=== PATIENT | male | born 1935 | race African-American/Black ===

== ENCOUNTER 2016-07-07 11:46 | Outpatient (CLI) | payer MEDICARE, OTHER | END 2016-07-07 11:47 | disposition home or self-care (01) | DX: E11.9 Type 2 diabetes mellitus without complications (principal); N18.3 Chronic kidney disease, stage 3 (moderate); B35.1 Tinea unguium; M54.5 Low back pain; I12.9 Hypertensive chronic kidney disease with stage 1 through stage 4 chronic kidney disease, or unspecified chronic kidney disease ==

== ENCOUNTER 2016-11-10 11:37 | Outpatient (CLI) | payer MEDICARE, OTHER ==
[2016-11-10 19:13] LABS: CALCIUM 9.7 mg/dL (8.5-10.3); CREATININE 1.3 mg/dL (0.6-1.2); POTASSIUM 4.2 mmol/L (3.5-5.0)
== END 2016-11-10 11:38 | disposition home or self-care (01) ==
LOC: LAB.WCP 11:37
PROVIDERS: ATTEND Family Medicine
DX: N18.3 Chronic kidney disease, stage 3 (moderate) (principal); C61 Malignant neoplasm of prostate
CPT/HCPCS: 36415; 80048; 84153

== ENCOUNTER 2017-02-08 08:00 | Outpatient (CLI) | payer MEDICARE, OTHER | END 2017-02-08 08:01 | disposition home or self-care (01) | LOC: LAB.R 08:00 | PROVIDERS: ATTEND Family Medicine | DX: N39.0 Urinary tract infection, site not specified (principal); R39.15 Urgency of urination; R30.0 Dysuria | CPT/HCPCS: 87086 ==

== ENCOUNTER 2017-04-17 11:12 | Outpatient (CLI) | payer MEDICARE, OTHER ==
[2017-04-17] MEDS ORDERED: IOPAMIDOL-300 50 ML VIAL ONE (11:43)
[2017-04-17] MEDS ORDERED: IOPAMIDOL-300 100 ML VIAL ONE (11:43)
[2017-04-17 11:50] LABS: CALCIUM 9.9 mg/dL (8.5-10.3); CREATININE 1.3 mg/dL (0.6-1.2); POTASSIUM 4.4 mmol/L (3.5-5.0)
[2017-04-17] MEDS ORDERED: IOPAMIDOL-300 100 ML VIAL IVP ONE (13:05)
[2017-04-17] MEDS ORDERED: IOPAMIDOL-300 50 ML VIAL PO ONE (13:05)
--- NOTE | 2017-04-18 16:21 | CT Report ---
CT SCAN ABDOMEN AND PELVIS: 04/17/2017 HISTORY: Left upper quadrant pain. IV CONTRAST: 100 mL Isovue-300. ORAL CONTRAST: 50 mL Isovue-300. TECHNIQUE: Axial images abdomen and pelvis with multiplanar reformations. COMPARISON: 05/05/[address] and 09/15/2008 abdomen/pelvic CT. FINDINGS: The left hemidiaphragm is elevated as before. Minor atelectatic change at the lung bases. No pleural effusion. Multiple low density lesions in the liver are similar to the prior chest CT and are most consistent with cysts. Spleen, pancreas and adrenal glands unremarkable. Small amount of perinephric stranding is present bilaterally. In addition, there are subcentimeter areas of low attenuation in the upper poles of both kidneys, too small to accurately characterize. There is no upper abdominal free fluid or pathologic adenopathy. There is scattered colonic diverticulosis. There is evidence of diverticulitis in the sigmoid region with bowel wall thickening and pericolonic fat stranding. No abscess collection is seen. Normal appendix. The bladder appears unremarkable. Prostate seeds are present. No anterior abdominal wall hernia. There is scattered degenerative change in the spine with lumbar levoscoliosis. IMPRESSION: SIGMOID DIVERTICULOSIS WITH CHANGES OF DIVERTICULITIS. NO DRAINABLE ABSCESS COLLECTION IS SEEN. MULTIPLE LOW ATTENUATION LESIONS IN THE LIVER AND BILATERAL KIDNEYS, MOST LIKELY CYSTS. ELEVATED LEFT DIAPHRAGM SIMILAR TO PRECEDING STUDIES. JOB #: [id number] EXT JOB #: [id number] GERONIMO
== END 2017-04-17 11:13 | disposition home or self-care (01) ==
LOC: LAB 11:12
PROVIDERS: ATTEND Family Medicine
DX: K57.32 Diverticulitis of large intestine without perforation or abscess without bleeding (principal); K57.30 Diverticulosis of large intestine without perforation or abscess without bleeding
CPT/HCPCS: 36415; 74177; 80048; Q9967

== ENCOUNTER 2017-06-05 15:16 | Outpatient (CLI) | payer MEDICARE, OTHER ==
--- NOTE | 2017-06-07 16:35 | Ultrasound Report ---
CAROTID DUPLEX: 06/05/2017 CLINICAL INDICATION: Tinnitus left ear, hypertension, diabetes. TECHNIQUE: Real-time sonographic vascular imaging was performed by the surface miner through the carotid arteries utilizing both color-flow and Doppler spectral analysis. Multiple customer field representative static images were saved for review. RIGHT Vessel PSV cm/sec EDV cm/sec ICA/CCA RSV Ratio Degree of Stenosis Plaque Estimate % RCCA Prox 67 -- -- RCCA Dist 66 16 -- RECA 46 -- -- RT BULB 53 14 0.80 BEENA Prox 70 13 1.06 BEENA Mid 54 19 0.82 BEENA Dist 77 23 1.17 RVA 78 -- -- RVA flow direction: Antegrade LEFT Vessel PSV cm/sec EDV cm/sec ICA/CCA RSV Ratio Degree of Stenosis Plaque Estimate % LCCA Prox 54 -- -- LCCA Dist 41 10 -- LECA 63 -- -- LFT BULB 41 12 1.0 LICA Prox 37 15 0.90 LICA Mid 90 35 2.22 LICA Dist 50 17 1.22 LVA 57 -- -- LVA flow direction: Antegrade Velocity criteria are extrapolated from diameter data as defined by the Society of Radiologists in Ultrasound Consensus Conference Radiology 2003; 229; 340-346. Degree of Stenosis % ICA PSV cm/sec ICA/CCA RSV Ratio ICA EDV cm/sec Plaque Estimate % Normal < 125 < 40 < 2.0 None <50 < 125 <40 < 2.0 < 50 50-69 125-130 40-100 2.0-4.0 >/=50 >/=70 but less than near occlusion > 230 > 100 > 4.0 >/=50 Near occlusion High, low or undetectable Variable Variable Visible Total occlusion Undetectable Not applicable Not applicable No detectable lumen FINDINGS RIGHT: There is no evidence of a focal hemodynamically significant stenosis. Minimal plaquing is seen in the right carotid bifurcation. LEFT: Minimal plaquing is seen in the left carotid bifurcation. There is no evidence of a focal hemodynamically significant stenosis. The vertebral arteries demonstrate antegrade flow bilaterally. IMPRESSION: NO EVIDENCE OF A HEMODYNAMICALLY SIGNIFICANT CAROTID STENOSIS. TD: 06/06/2017 10:09 [facility]
== END 2017-06-05 15:17 | disposition home or self-care (01) ==
LOC: DI 15:16
PROVIDERS: ATTEND Otolaryngology Facial Plastic Surgery
DX: H93.12 Tinnitus, left ear (principal); I10 Essential (primary) hypertension
CPT/HCPCS: 93880

== ENCOUNTER 2017-06-19 13:36 | Outpatient (CLI) | payer MEDICARE, OTHER | END 2017-06-19 13:37 | disposition home or self-care (01) | LOC: DI 13:36 | PROVIDERS: ATTEND Otolaryngology Facial Plastic Surgery | DX: Z53.9 Procedure and treatment not carried out, unspecified reason (principal) ==

== ENCOUNTER 2017-09-04 08:00 | Outpatient (CLI) | payer MEDICARE, OTHER ==
[2017-09-04 19:35] LABS: BASOPHILS % (AUTO) 0.4 %; EOSINOPHILS # (AUTO) 0.3 10^3/uL (0.0-0.7); EOSINOPHILS % (AUTO) 5.6 %; HGB - HEMOGLOBIN 13.2 g/dL (14.0-18.0); LYMPHOCYTES # (AUTO) 1.6 10^3/uL (1.5-3.5); LYMPHOCYTES % (AUTO) 26.4 %; MEAN CORPUSCULAR HEMOGLOBIN 29.6 pg (27.0-31.0); MEAN CORPUSCULAR HGB CONC 32.2 g/dL (32.0-36.0); MEAN CORPUSCULAR VOLUME 92.2 fL (80.0-94.0); MEAN PLATELET VOLUME 9.2 fL (7.4-11.4); MONOCYTES # (AUTO) 0.7 10^3/uL (0.0-1.0); NEUTROPHILS # (AUTO) 3.3 10^3/uL (1.5-6.6); NEUTROPHILS % (AUTO) 55.6 %; PLT - PLATELET COUNT 183 10^3/uL (130-450); RED BLOOD COUNT 4.44 10^6/uL (4.70-6.10); RED CELL DISTRIBUTION WIDTH 15.1 % (12.0-15.0)
[2017-09-04 20:05] LABS: CHOL/HDL RATIO 3.8 (<5.0); CHOLESTEROL 196 mg/dL; HDL CHOLESTEROL 52 mg/dL; LDL CHOLESTEROL,CALCULATED 129 mg/dL; LDL/HDL RATIO 2.5 (<3.6); VLDL CHOLESTEROL 15 mg/dL
== END 2017-09-04 08:01 | disposition home or self-care (01) ==
LOC: LAB.WCP 08:00
PROVIDERS: ATTEND Family Medicine
DX: E78.9 Disorder of lipoprotein metabolism, unspecified (principal); C61 Malignant neoplasm of prostate; I12.9 Hypertensive chronic kidney disease with stage 1 through stage 4 chronic kidney disease, or unspecified chronic kidney disease; E11.22 Type 2 diabetes mellitus with diabetic chronic kidney disease; N18.3 Chronic kidney disease, stage 3 (moderate)
CPT/HCPCS: 36415; 80061; 83721; 84153; 84443; 85025

== ENCOUNTER 2018-04-29 08:00 | Outpatient (CLI) | payer MEDICARE, OTHER ==
[2018-04-29 19:19] LABS: BASOPHILS % (AUTO) 0.3 %; EOSINOPHILS # (AUTO) 0.3 10^3/uL (0.0-0.7); EOSINOPHILS % (AUTO) 5.1 %; LYMPHOCYTES # (AUTO) 1.5 10^3/uL (1.5-3.5); LYMPHOCYTES % (AUTO) 27.8 %; MEAN CORPUSCULAR HEMOGLOBIN 30.8 pg (27.0-31.0); MEAN CORPUSCULAR HGB CONC 32.6 g/dL (32.0-36.0); MEAN CORPUSCULAR VOLUME 94.6 fL (80.0-94.0); MEAN PLATELET VOLUME 9.1 fL (7.4-11.4); MONOCYTES # (AUTO) 0.6 10^3/uL (0.0-1.0); MONOCYTES % (AUTO) 10.6 %; NEUTROPHILS % (AUTO) 56.2 %; PLT - PLATELET COUNT 193 10^3/uL (130-450); RED BLOOD COUNT 4.54 10^6/uL (4.70-6.10); RED CELL DISTRIBUTION WIDTH 14.3 % (12.0-15.0); WHITE BLOOD COUNT 5.3 x10^3/uL (4.8-10.8)
[2018-04-29 19:46] LABS: ALBUMIN 4.1 g/dL (3.2-5.5); ALBUMIN/GLOBULIN RATIO 1.4 (1.0-2.2); ALKALINE PHOSPHATASE 36 IU/L (42-121); ALT ALANINE AMINOTRANSFERASE 24 IU/L (10-60); AST ASPARTATE AMINOTRANSFERASE 22 IU/L (10-42); BILIRUBIN,TOTAL 0.7 mg/dL (0.2-1.0); BUN - BLOOD UREA NITROGEN 13 mg/dL (6-20); CALCIUM 9.7 mg/dL (8.5-10.3); CARBON DIOXIDE - CO2 26 mmol/L (21-32); CHLORIDE 106 mmol/L (101-111); CHOL/HDL RATIO 3.6 (<5.0); CHOLESTEROL 203 mg/dL; CREATININE 1.1 mg/dL (0.6-1.2); GFR - MDRD 78 (>89); GLUCOSE 123 mg/dL (70-100); HDL CHOLESTEROL 57 mg/dL; LDL CHOLESTEROL,CALCULATED 130 mg/dL; LDL/HDL RATIO 2.3 (<3.6); MAGNESIUM 1.8 mg/dL (1.7-2.8); SODIUM 138 mmol/L (135-145); TOTAL PROTEIN 7.1 g/dL (6.7-8.2); VLDL CHOLESTEROL 16 mg/dL
[2018-04-29 19:54] LABS: HB2 TOTAL 14.5 g/dL; HEMOGLOBIN A1C 0.62 g/dL; HEMOGLOBIN A1C % 6.1 % (4.6-6.2)
== END 2018-04-29 23:59 | disposition home or self-care (01) ==
LOC: LAB.WCP 08:00
PROVIDERS: ATTEND Family Medicine
DX: E11.22 Type 2 diabetes mellitus with diabetic chronic kidney disease (principal); I12.9 Hypertensive chronic kidney disease with stage 1 through stage 4 chronic kidney disease, or unspecified chronic kidney disease; N18.3 Chronic kidney disease, stage 3 (moderate); E78.9 Disorder of lipoprotein metabolism, unspecified; C61 Malignant neoplasm of prostate
CPT/HCPCS: 36415; 80053; 80061; 82043; 83036; 83721; 83735; 84153; 84443; 85025

== ENCOUNTER 2018-06-03 08:00 | Outpatient (CLI) | payer MEDICARE, OTHER | END 2018-06-03 23:59 | disposition home or self-care (01) | LOC: LAB.R 08:00 | PROVIDERS: ATTEND Physician Assistant | DX: N39.0 Urinary tract infection, site not specified (principal) | CPT/HCPCS: 87086 ==

== ENCOUNTER 2018-11-02 13:44 | Emergency (ER) | payer MEDICARE, OTHER ==
[2018-11-02] MEDS ORDERED: SODIUM CHLORIDE 0.9% 1,000 ML IV ONE ×2 (13:56→14:22)
[2018-11-02] MEDS ORDERED: ONDANSETRON 4 MG/2 ML VIAL IVP STA (13:56)
[2018-11-02] MEDS ORDERED: HYDROmorphone 1 MG/ML CARPUJECT IVP STA (13:56)
--- NOTE | 2018-11-02 13:59 | ED Physician Documentation ---
PD HPI ABD PAIN - Stated complaint Stated Complaint: ABD PAIN/DIZINESS - Chief complaint Chief Complaint: Abd Pain - History obtained from History obtained from: Patient, Family - History of Present Illness Timing - onset: Today (This is a very pleasant 83-year-old gentleman who awoke this morning with some swelling of the Left ankle which she felt like was his gout. But then he developed severe progressive central and upper abdominal pain which has since waned and is now more in the right upper quadrant. He tried to vomit but was unable. Only abdominal surgery is a remote prostatectomy for pro state cancer.) Review of Systems Ten Systems: 10 systems reviewed and negative Constitutional: denies: Fever, Chills Nose: denies: Rhinorrhea / runny nose, Congestion Cardiac: denies: Chest pain / pressure, Palpitations, Pedal edema, Calf pain Respiratory: denies: Dyspnea, Cough PD PAST MEDICAL HISTORY - Past Medical History Cardiovascular: Hypertension, Murmur, Arrhythmia Respiratory: Asthma, Sleep apnea Endocrine/Autoimmune: Type 2 diabetes GI: None : None HEENT: None Psych: None Musculoskeletal: Osteoarthritis, Chronic back pain Derm: None - Past Surgical History General: Colonoscopy Derm: Skin cancer surgery - Present Medications Home Medications: Ambulatory Orders Medication Instructions Recorded Confirmed Oxycodone HCl/Acetaminophen 1 - 2 each PO Q6H PRN #14 tablet 11/02/18 [Percocet 5-325 mg Tablet] - Allergies Allergies/Adverse Reactions: Allergies Allergy/AdvReac Type Severity Reaction Status Date / Time ibuprofen [From Motrin] Allergy Unknown Verified 09/06/15 11:45 - Family History Family history: reports: Non contributory PD ED PE NORMAL - Vitals Vital signs reviewed: Yes - General General: Alert and oriented X 3, Other (He appears uncomfortable) - HEENT HEENT: Pharynx benign - Neck Neck: Supple, no meningeal sign, No bony TTP - Cardiac Cardiac: RRR, No murmur - Respiratory Respiratory: No respiratory distress, Clear bilaterally - Abdomen Abdomen: Other (Hyper active bowel sounds without tenderness) - Back Back: No CVA TTP, No spinal TTP - Derm Derm: Normal color, Warm and dry - Extremities Extremities: Other (Tender and swollen about th L ankle, not the calf, no warmth/redness.) - Neuro Neuro: Alert and oriented X 3, Normal speech Results - Vitals Vitals: Vital Signs - 24 hr 11/02/18 13:47 Temperature 36.6 C Heart Rate 65 Respiratory 18 Rate Blood Pressure 180/71 H O2 Saturation 100 Oxygen O2 Source Room air - EKG (time done) 1356 Rate: Rate (enter#) (59) Rhythm: NSR Angelica: Normal Intervals: Other (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 He has nondiagnostic anterior ST elevation which could be from the left posterior fascicular block. There are no prior EKGs available for comparison. Given the atypical symptoms, STEMI code was not called as this EKG is equivocal.) - Labs Labs: Laboratory Tests 11/02/18 11/02/18 11/02/18 14:40 14:40 14:40 WBC 8.7 RBC 4.59 L Hgb 13.7 L Hct 43.8 MCV 95.4 H MCH 29.8 MCHC 31.3 L RDW 14.6 Plt Count 155 MPV 10.6 Neut # (Auto) 5.7 Lymph # (Auto) 1.3 L [place] # (Auto) 1.3 H Eos # (Auto) 0.3 Baso # (Auto) 0.0 Absolute Nucleated RBC 0.00 Nucleated RBC % 0.0 PT 12.6 INR 1.1 Sodium 137 Potassium 4.2 Chloride 102 Carbon Dioxide 25 Anion Gap 10.0 BUN 18 Creatinine 1.6 H Estimated GFR (MDRD) 50 L Glucose 83 Lactic Acid Calcium 9.7 Total Bilirubin 0.7 AST 19 ALT 27 Alkaline Phosphatase 37 L Total Creatine Kinase 123 CK-MB (CK-2) Troponin I Total Protein 6.8 Albumin 4.0 Globulin 2.8 Albumin/Globulin Ratio 1.4 Lipase 87 H 11/02/18 11/02/18 14:40 14:40 WBC RBC Hgb Hct MCV MCH MCHC RDW Plt Count MPV Neut # (Auto) Lymph # (Auto) [place] # (Auto) Eos # (Auto) Baso # (Auto) Absolute Nucleated RBC Nucleated RBC % PT INR Sodium Potassium Chloride Carbon Dioxide Anion Gap BUN Creatinine Estimated GFR (MDRD) Glucose Lactic Acid 1.3 Calcium Total Bilirubin AST ALT Alkaline Phosphatase Total Creatine Kinase CK-MB (CK-2) 4.9 Troponin I < 0.04 Total Protein Albumin Globulin Albumin/Globulin Ratio Lipase - Rads (name of study) CT A/P Radiology: EMP read contemporaneously (new mass head of pancreas and cholith iasis) PD MEDICAL DECISION MAKING - ED course Complexity details: reviewed results (CT is suggestive of a pancreatic head mass which is causing the likely mild pancreatitis which caused his pain. He is pain-free at this point and we discussed inpatient versus expedited outpatient work-up and he prefers the latter. I spoke with Dr. Mead on-call for the [address] [facility] who will help arrange this with his primary care physician, Dr. Marquez on Sunday.), considered differential (The abdominal pain is diffuse and upper, some concern for cardiac ischemia. His EKG is not normal however his symptoms are atypical and it is not diagnostic for STEMI. Mesenteric ischemia is also a possibility as is biliary pain.) ED course: This is a very pleasant 83-year-old gentleman with history of diabetes and prostatectomy who presents with left ankle swelling but not calf swelling today associated with the sudden onset of upper abdominal pain which is now waned but remains in the right upper quadrant. He is not tender. Departure - Departure Disposition: Home, Self Care Clinical Impression: Pancreatic mass Abdominal pain Qualifiers: Abdominal location: epigastric Qualified Code(s): R10.13 - Epigastric pain Condition: Good Record reviewed to determine appropriate education?: Yes Health Concerns: New abdominal pain which is resolved, concern for pancreatic cancer on imaging Plan of Treatment: To follow-up with Dr. Marquez on Sunday for appropriate referrals for gastroenterology for potential ERCP, and potential surgical management. Care Goals: Pain control pending further work-up Assessment: Pancreatic head mass causing abdominal pain Follow-Up: Jp Marquez MD [Provider Admit Priv/Credential] - 11/04/18 Prescriptions: Oxycodone HCl/Acetaminophen [Percocet 5-325 mg Tablet] 1 - 2 each PO Q6H PRN #14 tablet PRN Reason: pain Comments: Follow-up with Dr. Marquez on Sunday. Return if worse. Eat a light diet pending further work-up. Dr. Marquez will need to refer you for a dye box operator capable of endoscopic retrograde cholangiopancreatography.
[2018-11-02] MEDS ORDERED: IOVERSOL 320 100 ML VIAL IVP ONE (14:34)
[2018-11-02 14:44] LABS: BASOPHILS % (AUTO) 0.5 %; EOSINOPHILS # (AUTO) 0.3 10^3/uL (0.0-0.7); EOSINOPHILS % (AUTO) 3.6 %; HGB - HEMOGLOBIN 13.7 g/dL (14.0-18.0); LYMPHOCYTES # (AUTO) 1.3 10^3/uL (1.5-3.5); LYMPHOCYTES % (AUTO) 14.9 %; MEAN CORPUSCULAR HEMOGLOBIN 29.8 pg (27.0-31.0); MEAN CORPUSCULAR HGB CONC 31.3 g/dL (32.0-36.0); MEAN CORPUSCULAR VOLUME 95.4 fL (80.0-94.0); MEAN PLATELET VOLUME 10.6 fL (7.4-11.4); MONOCYTES # (AUTO) 1.3 10^3/uL (0.0-1.0); NEUTROPHILS # (AUTO) 5.7 10^3/uL (1.5-6.6); NEUTROPHILS % (AUTO) 64.9 %; PLT - PLATELET COUNT 155 10^3/uL (130-450); RED BLOOD COUNT 4.59 10^6/uL (4.70-6.10); RED CELL DISTRIBUTION WIDTH 14.6 % (12.0-15.0); WHITE BLOOD COUNT 8.7 x10^3/uL (4.8-10.8)
[2018-11-02 14:56] LABS: INR 1.1 (0.8-1.2); PT - PROTHROMBIN TIME 12.6 secs (9.9-12.6)
[2018-11-02 15:00] LABS: ALBUMIN/GLOBULIN RATIO 1.4 (1.0-2.2); BILIRUBIN,TOTAL 0.7 mg/dL (0.2-1.0); CALCIUM 9.7 mg/dL (8.5-10.3); CREATININE 1.6 mg/dL (0.6-1.2); TOTAL PROTEIN 6.8 g/dL (6.7-8.2)
[2018-11-02 15:04] LABS: TROPONIN I < 0.04 ng/mL (<0.49)
[2018-11-02 15:06] LABS: CREATINE KINASE MB 4.9 ng/mL (0.6-6.3)
--- NOTE | 2018-11-02 16:18 | CT Report ---
Reason: epigastric pain, elev lipase, IV only Procedure Date: 11/02/2018 Accession Number: [id number] / [id number] Procedure: CT - Abdomen/Pelvis W CPT Code: FULL RESULT: EXAM: CT ABDOMEN AND PELVIS EXAM DATE: 11/02/2018 03:55 PM. CLINICAL HISTORY: Epigastric pain, elevated lipase, IV only. COMPARISONS: ABDOMEN/PELVIS W/ 04/17/2017 12:53 PM. TECHNIQUE: Routine helical CT imaging was performed through the abdomen and pelvis. IV contrast: 90 mL Optiray 320. Enteric contrast: No. Reconstructions: Coronal and sagittal. In accordance with CT protocol optimization, one or more of the following dose reduction techniques were utilized for this exam: automated exposure control, adjustment of mA and/or KV based on patient size, or use of iterative reconstructive technique. FINDINGS: Lung bases: Elevated left hemidiaphragm, unchanged. Mild left base lingular and lower lobe lung consolidation again noted, suspect atelectasis. Coronary artery calcification. Liver: Multiple scattered low density masses are again seen in the liver, similar to the prior, most suggestive of liver cyst. Some prominent periportal lymph nodes are noted. Gallbladder: Small calcified gallstones near the neck. Bile ducts: Unremarkable. Pancreas: New pancreatic duct dilatation most dilated at the body measuring 9 mm. There is a new ill-defined low-density mass seen at the head of the pancreas measuring 2.9 x 2.6 x 3.6 cm concerning for pancreatic adenocarcinoma causing pancreatic duct dilatation. Spleen: Unremarkable. Adrenals: Unremarkable. Kidneys: A few small bilateral hypodensities in the kidneys too small to fully characterize. Left lateral renal cyst at the midpole measuring 1.6 cm. No hydronephrosis. Bowel: Mild descending and moderate sigmoid colon diverticulosis. Normal appendix. No acute bowel findings are seen. No evidence for bowel obstruction. Pelvis: The bladder and remaining pelvic organs appear unremarkable. Status post prostatectomy with surgical clips present. Vasculature: No acute findings. Calcified plaques causing hemodynamically significant stenosis of the origins of the celiac and superior mesenteric arteries, appear unchanged. Marked atherosclerotic calcification of the abdominal aorta. Bones: No acute bone findings. IMPRESSION: 1. New mass at the head of the pancreas most concerning for pancreatic adenocarcinoma and this is causing new pancreatic duct dilatation. Further workup is recommended. 2. Cholelithiasis. 3. Otherwise, see findings as above. RADIA
[2018-11-02 16:32] VITALS: BP 149/71
== END 2018-11-02 16:56 | disposition home or self-care (01) ==
LOC: ED 13:44
DX: K86.89 Other specified diseases of pancreas (principal); K80.20 Calculus of gallbladder without cholecystitis without obstruction; M25.472 Effusion, left ankle; I45.2 Bifascicular block; I10 Essential (primary) hypertension; E11.9 Type 2 diabetes mellitus without complications; Z85.46 Personal history of malignant neoplasm of prostate; Z90.79 Acquired absence of other genital organ(s)
CPT/HCPCS: 36415; 74177; 80053; 82550; 82553; 83605; 83690; 84484; 85025; 85610; 93005; 96361; 96374; 99283; 99284; J1170; Q9967

== ENCOUNTER 2019-03-21 08:00 | Outpatient (CLI) | payer MEDICARE, OTHER ==
[2019-03-21 19:20] LABS: BASOPHILS % (AUTO) 0.3 %; LYMPHOCYTES % (AUTO) 8.3 %; MEAN CORPUSCULAR HEMOGLOBIN 30.2 pg (27.0-31.0); MEAN CORPUSCULAR HGB CONC 31.9 g/dL (32.0-36.0); MEAN CORPUSCULAR VOLUME 94.6 fL (80.0-94.0); MEAN PLATELET VOLUME 11.4 fL (7.4-11.4); MONOCYTES % (AUTO) 1.5 %; NEUTROPHILS % (AUTO) 86.8 %; PLT - PLATELET COUNT 177 10^3/uL (130-450); RED BLOOD COUNT 2.98 10^6/uL (4.70-6.10); RED CELL DISTRIBUTION WIDTH 15.9 % (12.0-15.0)
[2019-03-21 19:32] LABS: ALBUMIN 3.2 g/dL (3.2-5.5); ALBUMIN/GLOBULIN RATIO 1.1 (1.0-2.2); BILIRUBIN,TOTAL 0.7 mg/dL (0.2-1.0); CALCIUM 9.5 mg/dL (8.5-10.3); CREATININE 0.9 mg/dL (0.6-1.2); TOTAL PROTEIN 6.2 g/dL (6.7-8.2)
[2019-03-21 19:54] LABS: ABNORMAL LYMPHS % (MANUAL) 0 %; BAND NEUTROPHILS % (MANUAL) 0 %
[2019-03-21 19:59] LABS: HB2 TOTAL 9.3 g/dL; HEMOGLOBIN A1C 0.46 g/dL; HEMOGLOBIN A1C % 6.7 % (4.6-6.2)
[2019-03-21 20:17] LABS: LYMPHOCYTES % (MANUAL) 13 %; MONOCYTES # (MANUAL) 0.2 10^3/uL (0.0-1.0)
[2019-03-21 20:18] LABS: PLATELET ESTIMATE, MANUAL NORMAL (130-450,000) (NORMAL); PLATELET MORPHOLOGY NORMAL APPEARANCE (NORMAL)
[2019-03-21 20:19] LABS: DIFFERENTIAL COMMENT MANUAL DIFFERENTIAL
== END 2019-03-21 23:59 | disposition home or self-care (01) ==
LOC: LAB.WCP 08:00
PROVIDERS: ATTEND Internal Medicine Hematology & Oncology
DX: Z79.891 Long term (current) use of opiate analgesic (principal); E11.9 Type 2 diabetes mellitus without complications; C61 Malignant neoplasm of prostate; C25.0 Malignant neoplasm of head of pancreas; K86.81 Exocrine pancreatic insufficiency
CPT/HCPCS: 36415; 80053; 82043; 82378; 83036; 85025; 86301

== ENCOUNTER 2019-03-28 08:00 | Outpatient (CLI) | payer MEDICARE, OTHER ==
[2019-03-28 18:55] LABS: BASOPHILS % (AUTO) 0.2 %; EOSINOPHILS % (AUTO) 3.6 %; HGB - HEMOGLOBIN 9.5 g/dL (14.0-18.0); LYMPHOCYTES % (AUTO) 8.3 %; MEAN CORPUSCULAR HEMOGLOBIN 30.1 pg (27.0-31.0); MEAN CORPUSCULAR HGB CONC 31.1 g/dL (32.0-36.0); MEAN CORPUSCULAR VOLUME 96.5 fL (80.0-94.0); MEAN PLATELET VOLUME 11.5 fL (7.4-11.4); MONOCYTES % (AUTO) 1.6 %; NEUTROPHILS % (AUTO) 85.3 %; PLT - PLATELET COUNT 236 10^3/uL (130-450); RED BLOOD COUNT 3.16 10^6/uL (4.70-6.10); RED CELL DISTRIBUTION WIDTH 16.1 % (12.0-15.0); WHITE BLOOD COUNT 6.2 x10^3/uL (4.8-10.8)
[2019-03-28 19:02] LABS: ALBUMIN 3.6 g/dL (3.2-5.5); ALBUMIN/GLOBULIN RATIO 1.2 (1.0-2.2); BILIRUBIN,TOTAL 0.8 mg/dL (0.2-1.0); CALCIUM 9.4 mg/dL (8.5-10.3); TOTAL PROTEIN 6.6 g/dL (6.7-8.2)
[2019-03-28 19:03] LABS: ABNORMAL LYMPHS % (MANUAL) 0 %
[2019-03-28 19:29] LABS: BAND NEUTROPHILS % (MANUAL) 4 %; EOSINOPHILS # (MANUAL) 0.2 10^3/uL (0-0.7); LYMPHOCYTES # (MANUAL) 0.5 10^3/uL (1.5-3.5); LYMPHOCYTES % (MANUAL) 8 %
[2019-03-28 19:30] LABS: DIFFERENTIAL COMMENT MANUAL DIFFERENTIAL; PLATELET ESTIMATE, MANUAL NORMAL (130-450,000) (NORMAL); PLATELET MORPHOLOGY NORMAL APPEARANCE (NORMAL)
== END 2019-03-28 23:59 | disposition home or self-care (01) ==
LOC: LAB.WCP 08:00
PROVIDERS: ATTEND Internal Medicine Hematology & Oncology
DX: C25.0 Malignant neoplasm of head of pancreas (principal)
CPT/HCPCS: 36415; 80053; 85025

== ENCOUNTER 2019-04-04 08:00 | Outpatient (CLI) | payer MEDICARE, OTHER ==
[2019-04-04 18:37] LABS: BASOPHILS % (AUTO) 0.3 %; EOSINOPHILS # (AUTO) 0.2 10^3/uL (0.0-0.7); EOSINOPHILS % (AUTO) 2.9 %; HGB - HEMOGLOBIN 9.4 g/dL (14.0-18.0); LYMPHOCYTES # (AUTO) 0.5 10^3/uL (1.5-3.5); LYMPHOCYTES % (AUTO) 6.6 %; MEAN CORPUSCULAR HEMOGLOBIN 30.1 pg (27.0-31.0); MEAN CORPUSCULAR HGB CONC 31.1 g/dL (32.0-36.0); MEAN CORPUSCULAR VOLUME 96.8 fL (80.0-94.0); MEAN PLATELET VOLUME 11.2 fL (7.4-11.4); MONOCYTES # (AUTO) 0.1 10^3/uL (0.0-1.0); MONOCYTES % (AUTO) 1.3 %; NEUTROPHILS # (AUTO) 6.3 10^3/uL (1.5-6.6); NEUTROPHILS % (AUTO) 88.1 %; PLT - PLATELET COUNT 191 10^3/uL (130-450); RED BLOOD COUNT 3.12 10^6/uL (4.70-6.10); WHITE BLOOD COUNT 7.1 x10^3/uL (4.8-10.8)
[2019-04-04 18:48] LABS: ALBUMIN 3.5 g/dL (3.2-5.5); ALBUMIN/GLOBULIN RATIO 1.1 (1.0-2.2); BILIRUBIN,TOTAL 0.7 mg/dL (0.2-1.0); CALCIUM 9.3 mg/dL (8.5-10.3); CREATININE 1.1 mg/dL (0.6-1.2); TOTAL PROTEIN 6.7 g/dL (6.7-8.2)
[2019-04-04 19:33] LABS: PLATELET ESTIMATE, MANUAL NORMAL (130-450,000) (NORMAL); PLATELET MORPHOLOGY NORMAL APPEARANCE (NORMAL); RBC MORPHOLOGY (MULTIPLE) NORMAL APPEARANCE (NORMAL)
[2019-04-04 19:34] LABS: DIFFERENTIAL COMMENT MANUA
== END 2019-04-04 23:59 | disposition home or self-care (01) ==
LOC: LAB.WCP 08:00
PROVIDERS: ATTEND Internal Medicine Hematology & Oncology
DX: C25.0 Malignant neoplasm of head of pancreas (principal); K86.81 Exocrine pancreatic insufficiency
CPT/HCPCS: 36415; 80053; 81599; 82378; 85025; 86301

== ENCOUNTER 2019-04-11 09:00 | Outpatient (CLI) | payer MEDICARE, OTHER ==
[2019-04-11 18:34] LABS: BASOPHILS % (AUTO) 0.2 %; EOSINOPHILS % (AUTO) 2.1 %; HGB - HEMOGLOBIN 8.4 g/dL (14.0-18.0); LYMPHOCYTES % (AUTO) 5.9 %; MEAN CORPUSCULAR HEMOGLOBIN 29.8 pg (27.0-31.0); MEAN CORPUSCULAR HGB CONC 31.2 g/dL (32.0-36.0); MEAN CORPUSCULAR VOLUME 95.4 fL (80.0-94.0); MEAN PLATELET VOLUME 12.1 fL (7.4-11.4); NEUTROPHILS % (AUTO) 90.1 %; PLT - PLATELET COUNT 141 10^3/uL (130-450); RED BLOOD COUNT 2.82 10^6/uL (4.70-6.10); RED CELL DISTRIBUTION WIDTH 17.6 % (12.0-15.0); WHITE BLOOD COUNT 5.7 x10^3/uL (4.8-10.8)
[2019-04-11 18:39] LABS: ABNORMAL LYMPHS % (MANUAL) 0 %
[2019-04-11 18:42] LABS: ALBUMIN 3.2 g/dL (3.2-5.5); ALBUMIN/GLOBULIN RATIO 1.1 (1.0-2.2); BILIRUBIN,TOTAL 0.5 mg/dL (0.2-1.0); CALCIUM 9.1 mg/dL (8.5-10.3); CREATININE 1.1 mg/dL (0.6-1.2); TOTAL PROTEIN 6.2 g/dL (6.7-8.2)
[2019-04-11 20:13] LABS: BAND NEUTROPHILS % (MANUAL) 2 %; EOSINOPHILS # (MANUAL) 0.2 10^3/uL (0-0.7); LYMPHOCYTES # (MANUAL) 0.4 10^3/uL (1.5-3.5); LYMPHOCYTES % (MANUAL) 7 %
[2019-04-11 20:15] LABS: DIFFERENTIAL COMMENT MANUAL DIFFERENTIAL; PLATELET ESTIMATE, MANUAL NORMAL (130-450,000) (NORMAL); PLATELET MORPHOLOGY NORMAL APPEARANCE (NORMAL); RBC MORPHOLOGY (MULTIPLE) 2+ ANISOCYTOSIS (NORMAL)
== END 2019-04-11 23:59 | disposition home or self-care (01) ==
LOC: LAB.WCP 09:00
PROVIDERS: ATTEND Internal Medicine Hematology & Oncology
DX: C25.0 Malignant neoplasm of head of pancreas (principal); K86.81 Exocrine pancreatic insufficiency
CPT/HCPCS: 36415; 80053; 81599; 82378; 85025; 86301

== ENCOUNTER 2019-04-18 12:49 | Outpatient (CLI) | payer MEDICARE, OTHER ==
[2019-04-18 18:33] LABS: BASOPHILS % (AUTO) 0.2 %; EOSINOPHILS # (AUTO) 0.1 10^3/uL (0.0-0.7); EOSINOPHILS % (AUTO) 2.2 %; HGB - HEMOGLOBIN 7.4 g/dL (14.0-18.0); LYMPHOCYTES # (AUTO) 0.3 10^3/uL (1.5-3.5); LYMPHOCYTES % (AUTO) 4.9 %; MEAN CORPUSCULAR HEMOGLOBIN 28.9 pg (27.0-31.0); MEAN CORPUSCULAR VOLUME 96.5 fL (80.0-94.0); MONOCYTES # (AUTO) 0.1 10^3/uL (0.0-1.0); NEUTROPHILS # (AUTO) 5.7 10^3/uL (1.5-6.6); NEUTROPHILS % (AUTO) 90.7 %; PLT - PLATELET COUNT 188 10^3/uL (130-450); RED BLOOD COUNT 2.56 10^6/uL (4.70-6.10); RED CELL DISTRIBUTION WIDTH 18.7 % (12.0-15.0); WHITE BLOOD COUNT 6.3 x10^3/uL (4.8-10.8)
[2019-04-18 18:59] LABS: ALBUMIN 3.1 g/dL (3.2-5.5); BILIRUBIN,TOTAL 0.9 mg/dL (0.2-1.0); CALCIUM 8.9 mg/dL (8.5-10.3); CREATININE 1.2 mg/dL (0.6-1.2); TOTAL PROTEIN 6.2 g/dL (6.7-8.2)
[2019-04-18 19:16] LABS: DIFFERENTIAL COMMENT MANUAL=AUTO DIFF; PLATELET ESTIMATE, MANUAL NORMAL (130-450,000) (NORMAL); PLATELET MORPHOLOGY NORMAL APPEARANCE (NORMAL)
== END 2019-04-18 23:59 | disposition home or self-care (01) ==
LOC: LAB.WCP 12:49
PROVIDERS: ATTEND Internal Medicine Hematology & Oncology
DX: C25.0 Malignant neoplasm of head of pancreas (principal); K86.81 Exocrine pancreatic insufficiency
CPT/HCPCS: 36415; 80053; 82378; 85025

== ENCOUNTER 2019-05-02 05:31 | Outpatient (CLI) | payer MEDICARE, OTHER | END 2019-05-02 05:32 | disposition critical access hospital (66) | LOC: EMS 05:31 | PROVIDERS: ATTEND Surgery | DX: R41.0 Disorientation, unspecified (principal); M47.816 Spondylosis without myelopathy or radiculopathy, lumbar region; G89.29 Other chronic pain; T40.2X5A Adverse effect of other opioids, initial encounter; Y92.008 Other place in unspecified non-institutional (private) residence as the place of occurrence of the external cause | CPT/HCPCS: A0425; A0429 ==

== ENCOUNTER 2019-05-02 05:52 | Inpatient (IN) | payer MEDICARE, OTHER ==
[2019-05-02] MEDS ORDERED: ONDANSETRON 4 MG/2 ML VIAL IVP STA (06:14)
[2019-05-02] MEDS ORDERED: SODIUM CHLORIDE 0.9% 1,000 ML IV STA (06:14)
--- NOTE | 2019-05-02 06:16 | ED Physician Documentation ---
History of Present Illness - Stated complaint Stated Complaint: CA, BACK PAIN, CONFUSION - Chief complaint Chief Complaint: Back Pain - Additonal information Additional information: This is a 68-year-old male with a history of pancreatic cancer - apparently stage Ib, on chemotherapy, follows with Dr. Mack Jorgensen at [facility] chronic back pain, who presents with worsened back pain. Patient states that he gets injections for his back pain every several months, and is about due for some new ones. He states that the pain is in his abdomen and mid lumbar spine, and it is worse with certain movements. He denies any weakness or numbness in his legs. He is prescribed pain medications through Dr. Marquez and he states that he took these over the last several days and he continued to have pain. No pain or burning with urination. He has had somewhat reduced appetite but no vomiting. His gives a slightly different story, and states that he has had a fever of 101 F on Sunday, she called into his oncologist who had him start levofloxacin, though they do not remember the exact dose. Patient reportedly has had some coughing and they are concerned this may be a pneumonia. He also has been acting confused for the last 2 days, this finally let his to call in to EMS. Now, however she states that he is back to acting his normal self. He denies any headache, neck pain. No dysuria. No chest pain. Review of Systems Constitutional: reports: Fever Nose: denies: Rhinorrhea / runny nose Cardiac: denies: Chest pain / pressure Respiratory: reports: Cough GI: reports: Nausea : denies: Dysuria Musculoskeletal: denies: Neck pain Immunocompromised: reports: Chemotherapy PD PAST MEDICAL HISTORY - Past Medical History Past Medical History: Yes Cardiovascular: Hypertension, Murmur, Arrhythmia Respiratory: Asthma, Sleep apnea Neuro: None Endocrine/Autoimmune: Type 2 diabetes GI: None : None HEENT: None Psych: None Musculoskeletal: Osteoarthritis, Chronic back pain Derm: None Other Past Medical History: PANCREATIC CANCER/chemo... - Past Surgical History Past Surgical History: Yes General: Colonoscopy Derm: Skin cancer surgery - Present Medications Home Medications: Ambulatory Orders Medication Instructions Recorded Confirmed Albuterol Sulfate [Proair 2 puffs INH Q4H PRN 05/02/19 05/02/19 Respiclick] Aspirin EC [Ecotrin] 325 mg PO DAILY 05/02/19 05/02/19 Carvedilol [Coreg] 25 mg PO BID 05/02/19 05/02/19 Cyclobenzaprine [Flexeril] 10 mg PO TID PRN 05/02/19 05/02/19 Docusate Sodium [Dss] 250 mg PO DAILY 05/02/19 05/02/19 Fluticasone 110 Mcg [Flovent] 2 puffs INH BID PRN 05/02/19 05/02/19 Fluticasone [Flonase] 1 sprays FAHEEM DAILY PRN 05/02/19 05/02/19 Hydralazine HCl 50 mg PO TID 05/02/19 05/02/19 Metformin HCl [Metformin HCl ER] 500 mg PO DAILY 05/02/19 05/02/19 Senna [Senokot] 8.6 mg PO DAILY PRN 05/02/19 05/02/19 Telmisartan [Micardis] 80 mg PO DAILY 05/02/19 05/02/19 oxyCODONE ER [OxyCONTIN] 10 mg PO Q12H 05/02/19 05/02/19 oxyCODONE [Roxicodone] 10 mg PO TID PRN 05/02/19 05/02/19 - Allergies Allergies/Adverse Reactions: Allergies Allergy/AdvReac Type Severity Reaction Status Date / Time ibuprofen [From Motrin] Allergy Unknown Verified 09/06/15 11:45 - Social History Does the pt smoke?: No Smoking Status: Never smoker Does the pt drink ETOH?: Yes Does the pt have substance abuse?: No - Immunizations Immunizations are current?: Yes - POLST Patient has POLST: No PD ED PE NORMAL - Vitals Vital signs reviewed: Yes - General General: Alert and oriented X 3, No acute distress - HEENT HEENT: PERRL - Neck Neck: Supple, no meningeal sign - Cardiac Cardiac: RRR, No murmur - Respiratory Respiratory: Other (Intermittent cough, slight crackles on the right. 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, No motor deficit, No sensory deficit, Normal speech - Psych Psych: Normal mood, Normal affect Results - Vitals Vitals: Oxygen O2 Source Room air - Labs Labs: Laboratory Tests 05/02/19 05/02/19 05/02/19 06:15 06:15 06:15 WBC 22.9 H RBC 2.70 L Hgb 8.0 L Hct 24.8 L MCV 91.9 MCH 29.6 MCHC 32.3 RDW 20.0 H Plt Count 235 MPV 11.1 Neut # (Auto) Not Reportable Lymph # (Auto) Not Reportable [place] # (Auto) Not Reportable Eos # (Auto) Not Reportable Baso # (Auto) Not Reportable Absolute Nucleated RBC Not Reportable Total Counted 100 Band Neuts % (Manual) 1 Reactive Lymphs % (Man) 1 Abnorm Lymph % (Manual) 0 Metamyelocytes % 10 H Other Cells % 2 Nucleated RBC % Not Reportable Neutrophils # (Manual) 14.4 H Lymphocytes # (Manual) 4.1 H Monocytes # (Manual) 0.9 Eosinophils # (Manual) 0.7 Basophils # (Manual) 0.0 Nucleated RBCs 19 Differential Comment MANUAL DIFFERENTIAL Platelet Estimate NORMAL (130-450,000) Platelet Morphology NORMAL APPEARANCE RBC Morph Micro Appear 2+ HYPOCHROMASIA Sodium 135 Potassium 4.5 Chloride 102 Carbon Dioxide 21 Anion Gap 12.0 BUN 20 Creatinine 1.7 H Estimated GFR (MDRD) 47 L Glucose 110 H Glycated Hemoglobin 7.0 H Estim Average Glucose 154 H Calcium 9.4 Total Bilirubin 1.7 H AST 59 H ALT 34 Alkaline Phosphatase 106 Total Protein 5.8 L Albumin 2.7 L Globulin 3.1 Albumin/Globulin Ratio 0.9 L Lipase 19 L Urine Color Urine Clarity Urine pH Ur Specific [place] Urine Protein Urine Glucose (UA) Urine Ketones Urine Occult Blood Urine Nitrite Urine Bilirubin Urine Urobilinogen Ur Leukocyte Esterase Ur Microscopic Review Urine Culture Comments 05/02/19 08:15 WBC RBC Hgb Hct MCV MCH MCHC RDW Plt Count MPV Neut # (Auto) Lymph # (Auto) [place] # (Auto) Eos # (Auto) Baso # (Auto) Absolute Nucleated RBC Total Counted Band Ne[place] % (Manual) Reactive Lymphs % (Man) Abnorm Lymph % (Manual) Metamyelocytes % Other Cells % Nucleated RBC % Neutrophils # (Manual) Lymphocytes # (Manual) Monocytes # (Manual) Eosinophils # (Manual) Basophils # (Manual) Nucleated RBCs Differential Comment Platelet Estimate Platelet Morphology RBC Morph Micro Appear Sodium Potassium Chloride Carbon Dioxide Anion Gap BUN Creatinine Estimated GFR (MDRD) Glucose Glycated Hemoglobin Estim Average Glucose Calcium Total Bilirubin AST ALT Alkaline Phosphatase Total Protein Albumin Globulin Albumin/Globulin Ratio Lipase Urine Color DARK YELLOW Urine Clarity CLEAR Urine pH 5.5 Ur Specific [place] 1.015 Urine Protein NEGATIVE Urine Glucose (UA) NEGATIVE Urine Ketones NEGATIVE Urine Occult Blood NEGATIVE Urine Nitrite NEGATIVE Urine Bilirubin NEGATIVE Urine Urobilinogen 1 (NORMAL) Ur Leukocyte Esterase NEGATIVE Ur Microscopic Review NOT INDICATED Urine Culture Comments NOT INDICATED - Rads (name of study) CT abd/pelvis Radiology: Other (Known pancreatic head mass, with distal pancreatic atrophy and pancreatic duct dilatation which is unchanged from 08/2018, increasing opacities of both lower lungs consistent atelectasis or pneumonia with a very small left pleural effusion, cholelithiasis without signs of cholecystitis or bile duct dilation) CXR Radiology: Other (Moderate left basilar airspace opacity may reflect pneumonia or pneumonitis. On my read I am also concerned for a right upper lobe opacity.) PD MEDICAL DECISION MAKING - ED course Complexity details: considered differential (UTI, pneumonia, electrolyte abnormality, JILLIAN, Cholangitis/biliary obstruction) ED course: Patient is quite well-appearing on exam, he is a rambling historian and it is initially hard to understand his reason for visit. His primary complaint was abdominal discomfort which is chronic and back pain which appears to be acute on chronic. Was given a 5 mg dose of oxycodone with improvement. A CT scan of his abdomen pelvis did not show any acute abdominal pathology. His labs are notable for leukocytosis of 22.9, his baseline is around 6. Last time he received steroids was over a week ago with his chemotherapy, and reviewing his medication list from his oncology office I do not see any significant steroids on the list. He has had a fever over the last several days, though none for the last 24 hours, but this is been measured up at 101 F. Labs are also notable for a mild JILLIAN as well as somewhat elevated bilirubin. CT suggested a pneumonia in the bases of the lungs, x-ray was obtained and does show an infiltrate, given his cough and his leukocytosis, I think that pneumonia is possible. I spoke with his oncologist Dr. Laguerre, who did not have a better explanation for his leukocytosis other than infection. Patient is already been on levofloxacin for 48 Hours and yet his white blood cell count is quite elevated. Additionally given the fact that he had some confusion earlier concerned that he may have worsening of infection given his immunocompromise status. He was admitted to the hospital for further work-up and evaluation, cultures were drawn he was started on broad-spectrum attics. His urine is negative. Patient and his family are in agreement with this plan Departure - Departure Disposition: 66 [facility] DC/Xfer Clinical Impression: Pancreatic cancer Pneumonia Qualifiers: Pneumonia type: due to unspecified organism Laterality: right Lung location: unspecified part of lung Qualified Code(s): J18.9 - Pneumonia, unspecified organism Condition: Good Discharge Date/Time: 05/02/19 11:17
[2019-05-02] MEDS: MORPHINE 10 MG/ML VIAL IVP STA ×2 (06:29→07:00)
[2019-05-02 06:33] LABS: BASOPHILS % (AUTO) 0.7 %; EOSINOPHILS % (AUTO) 4.3 %; LYMPHOCYTES % (AUTO) 20.8 %; MEAN CORPUSCULAR HEMOGLOBIN 29.6 pg (27.0-31.0); MEAN CORPUSCULAR HGB CONC 32.3 g/dL (32.0-36.0); MEAN CORPUSCULAR VOLUME 91.9 fL (80.0-94.0); MEAN PLATELET VOLUME 11.1 fL (7.4-11.4); MONOCYTES % (AUTO) 17.9 %; NEUTROPHILS % (AUTO) 47.8 %; PLT - PLATELET COUNT 235 10^3/uL (130-450); WHITE BLOOD COUNT 22.9 x10^3/uL (4.8-10.8)
[2019-05-02 06:36] LABS: ABNORMAL LYMPHS % (MANUAL) 0 %
[2019-05-02 06:42] LABS: ALBUMIN 2.7 g/dL (3.2-5.5); ALBUMIN/GLOBULIN RATIO 0.9 (1.0-2.2); BILIRUBIN,TOTAL 1.7 mg/dL (0.2-1.0); CALCIUM 9.4 mg/dL (8.5-10.3); CREATININE 1.7 mg/dL (0.6-1.2); TOTAL PROTEIN 5.8 g/dL (6.7-8.2)
[2019-05-02] MEDS ORDERED: oxyCODONE 5 MG TABLET PO STA ×2 (06:52→11:06)
[2019-05-02] MEDS ORDERED: IOVERSOL 320 100 ML VIAL IVP ONE ×2 (07:01→08:06)
[2019-05-02 07:34] LABS: BAND NEUTROPHILS % (MANUAL) 1 %; EOSINOPHILS # (MANUAL) 0.7 10^3/uL (0-0.7); LYMPHOCYTES # (MANUAL) 4.1 10^3/uL (1.5-3.5); LYMPHOCYTES % (MANUAL) 17 %; METAMYELOCYTES % (MANUAL) 10 %; MONOCYTES # (MANUAL) 0.9 10^3/uL (0.0-1.0); OTHER CELLS % (MANUAL) 2 %
[2019-05-02 07:37] LABS: PLATELET ESTIMATE, MANUAL NORMAL (130-450,000) (NORMAL); PLATELET MORPHOLOGY NORMAL APPEARANCE (NORMAL)
[2019-05-02 07:38] LABS: DIFFERENTIAL COMMENT MANUAL DIFFERENTIAL
[2019-05-02 08:29] LABS: GLUCOSE, URINE (UA) NEGATIVE (NEGATIVE); KETONES,URINE (UA) NEGATIVE (NEGATIVE); LEUKOCYTE ESTERASE, URINE NEGATIVE (NEGATIVE); NITRITE,URINE NEGATIVE (NEGATIVE); OCCULT BLOOD,URINE NEGATIVE (NEGATIVE); PH,URINE 5.5 PH (5.0-7.5); PROTEIN,URINE NEGATIVE (NEGATIVE); UROBILINOGEN,URINE 1 (NORMAL) E.U./dL (NORMAL)
[2019-05-02 08:34] LABS: BILIRUBIN,URINE NEGATIVE (NEGATIVE); CLARITY,URINE CLEAR (CLEAR); ICTOTEST,URINE NEGATIVE
--- NOTE | 2019-05-02 08:50 | CT Report ---
Reason: Abdominal pain, acute, nonlocalized Procedure Date: 05/02/2019 Accession Number: [id number] / [id number] Procedure: CT - Abdomen/Pelvis W CPT Code: Final Report FULL RESULT: EXAM: CT ABDOMEN AND PELVIS WITH IV CONTRAST EXAM DATE: 05/02/2019. CLINICAL HISTORY: Abdominal pain, acute, nonlocalized. History of pancreatic cancer. COMPARISONS: Chest abdomen and pelvis CT done 04/16/2019. TECHNIQUE: Routine helical CT imaging was performed through the abdomen and pelvis. IV contrast: 100 cc of Optiray 320. Enteric contrast: None. Reconstructions: Coronal and sagittal. In accordance with CT protocol optimization, one or more of the following dose reduction techniques were utilized for this exam: automated exposure control, adjustment of mA and/or KV based on patient size, or use of iterative reconstructive technique. FINDINGS: Lung Bases: Increased opacity of the left lower lung, superimposed upon the chronic scarring, and patchy opacity in the right lower lung, not present previously. New very small left pleural effusion. Left diaphragmatic elevation is unchanged. Liver: Multiple cysts are unchanged. No new abnormality. Gallbladder/Bile Ducts: Punctate gallstone, not previously visualized. No wall thickening or adjacent fluid collections. No bile duct dilatation. Spleen: Normal. Pancreas: The mass in the head, atrophy distally, and dilatation of the pancreatic duct is unchanged. No acute inflammatory changes. Adrenal Glands: Normal. Kidneys: Cysts are unchanged. No hydronephrosis or calculi. Peritoneal Cavity/Bowel: No bowel dilatation. The same meeting and sigmoid colon diverticulosis, no sign of diverticulitis.. No free fluid, free air or adenopathy. No masses or acute inflammatory process. Pelvic Organs: The urinary bladder appears normal. No adenopathy or fluid collections. Multiple phleboliths and surgical clips. Vasculature: Atherosclerosis of the aorta and branch arteries. No aneurysm. Bones: Degenerative changes of the spine. IMPRESSION: Pancreatic head mass, consistent with the known pancreatic cancer, distal pancreatic atrophy, and pancreatic duct dilatation appear unchanged from 2018. Increasing opacity of both lower lung since prior examination consistent with atelectasis or pneumonia. New very small left pleural effusion. Cholelithiasis, no cysts sign of cholecystitis or bile duct dilatation. Pancreatic and renal cysts and other chronic findings are unchanged. RADIA
--- NOTE | 2019-05-02 09:53 | XRAY Report ---
Reason: Assess for PNA Procedure Date: 05/02/2019 Accession Number: [id number] / [id number] Procedure: XR - Chest 1 View X-Ray CPT Code: 35504 Final Report FULL RESULT: EXAM: CHEST RADIOGRAPHY EXAM DATE: 05/02/2019 09:28 AM. CLINICAL HISTORY: Assess for PNA. Prior report indicates abdominal pain, history of pancreatic cancer, increasing bibasilar lung opacities. COMPARISON: RIBS 2 VIEW LT 01/16/2018 11:43 AM ABDOMEN/PELVIS W/ 05/02/2019 7:56 AM ABDOMEN/PELVIS W/ 11/02/2018 3:[address] CHEST ABDOMEN PELVIS W CONTRAST 04/16/2019 7:17 PM. TECHNIQUE: Upright AP view. FINDINGS: Lungs/Pleura: Moderate left hemidiaphragm elevation, as before. Mild left basilar airspace opacity. Lungs otherwise clear. No interstitial abnormality. No pneumothorax or gross pleural fluid. Mediastinum: Within exam limitations, the cardiomediastinal contour is normal. Right IJ Port-A-Cath, as before. Other: None. IMPRESSION: 1. Moderate left hemidiaphragm elevation, as before. 2. Mild left basilar airspace opacity which may reflect atelectasis or pneumonitis. RADIA
[2019-05-02] MEDS ORDERED: PIPERACILLIN/TAZOBACTAM 4.5 GM in SODIUM CHLORIDE 0.9% MINIBAG 100 ML IV STA (10:05)
[2019-05-02] MEDS ORDERED: VANCOMYCIN INJ 1.5 GM in SODIUM CHLORIDE 0.9% 500 ML IV STA (10:05)
[2019-05-02] MEDS ORDERED: ZOLPIDEM 5 MG TABLET PO PRN (10:07)
[2019-05-02] MEDS ORDERED: PROCHLORPERAZINE 10 MG/2 ML VIAL IVP PRN (10:07)
[2019-05-02] MEDS ORDERED: ONDANSETRON 4 MG/2 ML VIAL IVP PRN (10:07)
[2019-05-02] MEDS ORDERED: SODIUM CHLORIDE FLUSH 0.9% 10 ML SYRINGE IVP PRN ×2 (10:07→15:48)
[2019-05-02] MEDS ORDERED: VANCOMYCIN PER PHARMACY 0 GM in SODIUM CHLORIDE 0.9% 250 ML IV SCH (11:00)
[2019-05-02] MEDS: SODIUM CHLORIDE 0.9% 1,000 ML IV SCH (12:04)
--- NOTE | 2019-05-02 12:11 | PHARMACY PROGRESS NOTE ---
- Therapy Status Vancomycin regimen day #: 1 Therapy status: Awaiting steady state Basis for treatment: Empirical Trough goal: 15-20 Concurrent antibiotics: ZOSYN 3.375 Q6H - JILLIAN Risk Risk level for Acute Kidney Injury: High Acute Kidney Injury risk factors: Piperacillin/Tozobactam, Baseline CrCl <50, Wt >100kg or BMI >40, IV contrast within 72 hrs, Goal trough >15, Diabetes - Monitoring and Recommendation Clinical response to treatment: I&O Previous 24 hours 04/30/19 05/01/19 05/02/19 23:59 23:59 23:59 Intake Total 1058.333 Balance 1058.333 Lab Results 05/02/19 06:15 BUN 20 Creatinine 1.7 H Estimated GFR (MDRD) 47 L Monitoring plan: Daily serum creatinine, Suggest ongoing fluid replacement Next trough due prior to maintenance dose #: 4 Next trough due (date/time): 05/05/19 at 1230 Areas for additional monitoring: IV to PO when appropriate, Therapy de- escalation based on culture results, Acute Kidney Injury Pharmacy recommendation: Continue current regime
--- NOTE | 2019-05-02 12:15 | HISTORY & PHYSICAL EXAMINATION ---
Chief Complaint - Chief Complaint Chief Complaint: Fever, back pain and abdominal pain History of Present Illness - Admitted From Admitted From:: Emergency department - History Obtained From Records Reviewed: Yes History obtained from: Patient and patient's Exam Limitations: None - History of Present Illness HPI Comment/Other: Patient is a 84-year-old -[place] gentleman with a past medical history significant for hypertension, asthma, obstructive sleep apnea, type 2 diabetes mellitus, chronic low back pain, osteoarthritis, hyperlipidemia and pancreatic cancer diagnosed in December of this year currently undergoing chemotherapy who presented to the emergency department secondary to fever and confusion. The patient is a poor historian as he is confused when I interview him. The patient expresses to me that his brought him in to the hospital after they had a long conversation about his finances. It is not really clear from his history as to why he presented to the hospital. I spoke with the patient's and she states that the patient received chemotherapy just over 1 week ago and then she began to notice that he was having increasing confusion and hallucinations. She states 3 days ago he spiked a fever up to 101 and was very confused at that time. She states that she called his oncologist who prescribed him Levaquin which he has been taking for the last 3 days. She states that despite being on this medication he has been having continued confusion and today was very paranoid and she became scared so she called EMS. She states that she has been monitoring his fevers and he has not had any fevers as high as 101 since 3 days ago. The patient is coughing when I interview him and he does admit to a nonproductive cough. He denies any chest pain or shortness of breath. In the emergency department the patient did complain of abdominal pain and back pain. When I asked him about his back pain he states that he has had this pain for years. The patient denies any shortness of breath. On presentation to the emergency department the patient was afebrile and slightly hypertensive. Patient was not hypoxic and initially did not appear to be in any respiratory distress. The patient's lab work was remarkable for a white blood cell count of 22.9, hemoglobin of 8, creatinine of 1.7 which was elevated from his baseline and a lactic acid of 4.0 along with a bilirubin of 1.7 and AST of 59. The patient's urine analysis was negative. Given the patient's complaint of abdominal pain the emergency room physician did order a CT of his abdomen and pelvis which revealed pancreatic head mass, consistent with known pancreatic cancer, distal pancreatic atrophy and pancreatic duct dilation which appeared unchanged from 08/2018. There was also finding of increasing opacity of the lower lung since prior examination consistent with atelectasis or pneumonia. There was also a very small left pleural effusion. The patient had cholelithiasis with no cysts or signs of cholecystitis or bile duct dilation. Patient did have finding of chronic pancreatic and renal cysts. The patient did then undergo a chest x-ray which showed a moderate left hemidiaphragm elevation and mild left basilar airspace opacity which may reflect atelectasis or pneumonitis. The patient otherwise denies any headache, blurred vision, runny nose, sore throat, nasal congestion, chest pain, shortness of breath, nausea, vomiting, diarrhea, constipation, urinary urgency, urinary frequency, dysuria, neck stiffness, recent unintentional weight loss, night sweats, or any focal neurologic deficits. On arrival to the [facility] the patient was confused and tachypneic with respiratory rate of 27. Given the patient's leukocytosis, elevated lactic acid, confusion, acute kidney injury and tachypnea in the setting of pneumonia the patient was admitted with sepsis due to pneumonia. The patient was given IV vancomycin and Zosyn in the emergency department. History - Past Medical History Cardiovascular: reports: Hypertension, Murmur, Arrhythmia Respiratory: reports: Asthma, Sleep apnea Neuro: reports: None Endocrine/Autoimmune: reports: Type 2 diabetes GI: reports: Other (Pancreatic cancer) : reports: None HEENT: reports: None Psych: reports: None Musculoskeletal: reports: Osteoarthritis, Chronic back pain Derm: reports: None MRSA Hx?: No Other Past Medical History: PANCREATIC CANCER/chemo... - Past Surgical History General: reports: Colonoscopy Derm: reports: Skin cancer surgery - Family & Social History Family History Comment/Other: Patient's mother and father when he was 3 years old so he does not know about their medical history. Patient states that his brother was murdered and his other brother was found under his house. He does have 1 sister who is a half sister and he does not know anything about her medical history. Living arrangement: At home Living Situation: With spouse/s.o. Social History Notes: The patient lives at home with his . They live in [place]. The patient is retired from the [employer] for 20 years and then working for [employer] for 16 years. The patient states that he smoked a pipe and cigars for a few years about 50 years ago. He has not smoked since. The patient denies any alcohol use or any illicit drug use. - Substance History Use: Uses substance without health or social issues: NONE Abuse: Recurrent use of substance despite neg consequences: NONE Dependence: Experiences withdrawal or developed tolerances: NONE - POLST Patient has POLST: No POLST Status: Full Code Meds/Allgy - Home Medications Home Medications: Ambulatory Orders Medication Instructions Recorded Confirmed Albuterol Sulfate [Proair 2 puffs INH Q4H PRN 05/02/19 05/02/19 Respiclick] Aspirin EC [Ecotrin] 325 mg PO DAILY 05/02/19 05/02/19 Carvedilol [Coreg] 25 mg PO BID 05/02/19 05/02/19 Cyclobenzaprine [Flexeril] 10 mg PO TID PRN 05/02/19 05/02/19 Docusate Sodium [Dss] 250 mg PO DAILY 05/02/19 05/02/19 Fluticasone 110 Mcg [Flovent] 2 puffs INH BID PRN 05/02/19 05/02/19 Fluticasone [Flonase] 1 sprays FAHEEM DAILY PRN 05/02/19 05/02/19 Hydralazine HCl 50 mg PO TID 05/02/19 05/02/19 Metformin HCl [Metformin HCl ER] 500 mg PO DAILY 05/02/19 05/02/19 Senna [Senokot] 8.6 mg PO DAILY PRN 05/02/19 05/02/19 Telmisartan [Micardis] 80 mg PO DAILY 05/02/19 05/02/19 oxyCODONE ER [OxyCONTIN] 10 mg PO Q12H 05/02/19 05/02/19 oxyCODONE [Roxicodone] 10 mg PO TID PRN 05/02/19 05/02/19 - Allergies Allergies/Adverse Reactions: Allergies Allergy/AdvReac Type Severity Reaction Status Date / Time ibuprofen [From Motrin] Allergy Unknown Verified 09/06/15 11:45 Review of Systems - Other Findings Other Findings: A comprehensive review of systems was performed the pertinent positives and negatives are stated above in the HPI and the remainder of the review of systems is negative. Prior Level of Functionality: Lives independently with his in [place] Exam - Vital Signs Reviewed Vital Signs: Yes Vital Signs: Vital Signs x48h Temp Pulse Pulse Resp BP BP Pulse Ox 05/02/19 11:32 36.7 C 87 27 H 121/56 L 93 05/02/19 07:46 37.1 C 05/02/19 07:04 88 16 102/73 94 05/02/19 06:36 88 17 138/73 H 94 05/02/19 05:52 37.1 C 79 18 146/77 H 94 - Physical Exam General Appearance: positive: Alert, Other (Patient is confused) Eyes Bilateral: positive: Normal inspection, PERRL, EOMI, No lid inflammation, Conjunctivae nml, No scleral icterus ENT: positive: ENT inspection nml, Pharynx nml, Dry mucous membranes. negative: Purulent nasal drainage, Pharyngeal erythema, Oral lesions Neck: positive: Nml inspection, Thyroid nml, No JVD, Trachea midline. negative: Lymphadenopathy (R), Lymphadenopathy (L), Stiff neck Respiratory: positive: Chest non-tender, Wheezes (Scattered wheezes), Rhonchi (Right lower lobe rhonchi) Cardiovascular: positive: Regular rate & rhythm, No murmur, No gallop Peripheral Pulses: positive: 2+ Abdomen: positive: Non-tender, No organomegaly, Nml bowel sounds, Other (Abdomen is distended). negative: Guarding, Rebound, Hepatomegaly Back: positive: Nml inspection, Other (Lower back is tender to palpation) Skin: positive: Color nml, No rash, Warm. 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 Source of the patient's sepsis appears to be a pneumonia. Patient is recently gotten chemotherapy and was on Levaquin for 3 days without improvement. Given that he is immunosuppressed we will treat with broad-spectrum IV antibiotics. Patient started on IV vancomycin and Zosyn in the emergency department these will be continued in the hospital. Blood cultures are been drawn and pending Give IV fluids Qualifiers: Sepsis acute organ dysfunction status: with acute organ dysfunction Severe sepsis acute organ dysfunction type: acute renal failure Acute renal failure type: unspecified Severe sepsis shock status: without septic shock (2) Metabolic encephalopathy Conclusion/Plan: Likely secondary to sepsis and pneumonia and possibly effects from the patient's chemotherapy. Patient is also on narcotics and Flexeril for his back pain which could affect h is mentation as well. For now we will hold these medications. Give antibiotics and IV fluids, treat sepsis Monitor closely (3) HCAP (healthcare-associated pneumonia) Conclusion/Plan: Patient presented with sepsis and source is found to be pneumonia Patient received chemotherapy 1-1/2 weeks ago and therefore is immunosuppressed and should be treated for healthcare associated pneumonia Treat with IV antibiotics vancomycin and Zosyn Blood cultures Nebs as needed Supplemental oxygen as needed (4) JILLIAN (acute kidney injury) Conclusion/Plan: Patient's creatinine is elevated to 1.7 from a baseline of about 1.1 This appears to be prerenal azotemia secondary to sepsis Give IV fluids Monitor creatinine Avoid nephrotoxic agent (5) Diabetes mellitus Conclusion/Plan: Patient has history of diabetes mellitus type 2 Patient is on metformin at home which could also be partly causing his lactic acid elevation We will hold metformin Place patient on sliding scale insulin Monitor blood glucose Diabetic diet Qualifiers: Diabetes mellitus type: type 2 Diabetes mellitus custodial insulin use: without custodial use Diabetes mellitus complication status: without complication Qualified Code(s): E11.9 - Type 2 diabetes mellitus without complications (6) Anemia Conclusion/Plan: Likely secondary to chemotherapy Monitor CBC daily Iron studies B12, folate Transfuse if hemoglobin less than 7 Qualifiers: Anemia type: unspecified type Qualified Code(s): D64.9 - Anemia, unsp ecified (7) Hypertension Conclusion/Plan: Patient's blood pressure is stable on presentation Patient did present with sepsis but is not in shock We will monitor closely if blood pressure declines then we will need to hold antihypertensives Continue to give IV fluid Qualifiers: Hypertension type: essential hypertension Qualified Code(s): I10 - Essential (primary) hypertension (8) Asthma Conclusion/Plan: Patient has history of asthma but does not appear to be having asthma exacerbation despite having pneumonia We will place the patient on duo nebs as needed Qualifiers: Asthma severity: mild Asthma persistence: intermittent Asthma complication type: unspecified Qualified Code(s): J45.20 - Mild intermittent asthma, uncomplicated (9) Low back pain Conclusion/Plan: Patient has chronic low back pain Patient is on Flexeril and oxycodone as well as OxyContin For now I will hold the patient's Flexeril, oxycodone and OxyContin given his metabolic encephalopathy Patient be placed on Tylenol as needed for now Once mentation improves he can restart opioids Qualifiers: Chronicity: chronic (10) Pancreatic cancer Conclusion/Plan: stage Ib, on chemotherapy, follows with Dr. Mack Jorgensen at [facility] Patient received chemotherapy 1-1/2 weeks ago Continue to follow-up as outpatient - Lab Results Lab results reviewed: Yes Fish Bones: 05/02/19 06:15 05/02/19 06:15 Other Lab Results: Laboratory Tests 05/02/19 05/02/19 05/02/19 06:15 06:15 08:15 WBC 22.9 H RBC 2.70 L Hgb 8.0 L Hct 24.8 L MCV 91.9 MCH 29.6 MCHC 32.3 RDW 20.0 H Plt Count 235 MPV 11.1 Neut # (Auto) Not Reportable Lymph # (Auto) Not Reportable Dixie # (Auto) Not Reportable Eos # (Auto) Not Reportable Baso # (Auto) Not Reportable Absolute Nucleated RBC Not Reportable Total Counted 100 Band Neuts % (Manual) 1 Reactive Lymphs % (Man) 1 Abnorm Lymph % (Manual) 0 Metamyelocytes % 10 H Other Cells % 2 Nucleated RBC % Not Reportable Neutrophils # (Manual) 14.4 H Lymphocytes # (Manual) 4.1 H Monocytes # (Manual) 0.9 Eosinophils # (Manual) 0.7 Basophils # (Manual) 0.0 Nucleated RBCs 19 Differential Comment MANUAL DIFFERENTIAL Platelet Estimate NORMAL (130-450,000) Platelet Morphology NORMAL APPEARANCE RBC Morph Micro Appear 2+ HYPOCHROMASIA Sodium 135 Potassium 4.5 Chloride 102 Carbon Dioxide 21 Anion Gap 12.0 BUN 20 Creatinine 1.7 H Estimated GFR (MDRD) 47 L Glucose 110 H Lactic Acid Calcium 9.4 Total Bilirubin 1.7 H AST 59 H ALT 34 Alkaline Phosphatase 106 Total Protein 5.8 L Albumin 2.7 L Globulin 3.1 Albumin/Globulin Ratio 0.9 L Lipase 19 L Urine Color DARK YELLOW Urine Clarity CLEAR Urine pH 5.5 Ur Specific [place] 1.015 Urine Protein NEGATIVE Urine Glucose (UA) NEGATIVE Urine Ketones NEGATIVE Urine Occult Blood NEGATIVE Urine Nitrite NEGATIVE Urine Bilirubin NEGATIVE Urine Urobilinogen 1 (NORMAL) Ur Leukocyte Esterase NEGATIVE Ur Microscopic Review NOT INDICATED Urine Culture Comments NOT INDICATED 05/02/19 10:29 WBC RBC Hgb Hct MCV MCH MCHC RDW Plt Count MPV Neut # (Auto) Lymph # (Auto) Dixie # (Auto) Eos # (Auto) Baso # (Auto) Absolute Nucleated RBC Total Counted Band Neuts % (Manual) Reactive Lymphs % (Man) Abnorm Lymph % (Manual) Metamyelocytes % Other Cells % Nucleated RBC % Neutrophils # (Manual) Lymphocytes # (Manual) Monocytes # (Manual) Eosinophils # (Manual) Basophils # (Manual) Nucleated RBCs Differential Comment Platelet Estimate Platelet Morphology RBC Morph Micro Appear Sodium Potassium Chloride Carbon Dioxide Anion Gap BUN Creatinine Estimated GFR (MDRD) Glucose Lactic Acid 4.0 H* Calcium Total Bilirubin AST ALT Alkaline Phosphatase Total Protein Albumin Globulin Albumin/Globulin Ratio Lipase Urine Color Urine Clarity Urine pH Ur Specific [place] Urine Protein Urine Glucose (UA) Urine Ketones Urine Occult Blood Urine Nitrite Urine Bilirubin Urine Urobilinogen Ur Leukocyte Esterase Ur Microscopic Review Urine Culture Comments - Diagnostic Imaging Results Diagnostic Imaging Results: positive: Final report reviewed Diagnostic Imaging Results Comments: EXAM: CT ABDOMEN AND PELVIS WITH IV CONTRAST EXAM DATE: 05/02/2019. CLINICAL HISTORY: Abdominal pain, acute, nonlocalized. History of pancreatic cancer. COMPARISONS: Chest abdomen and pelvis CT done 04/16/2019. TECHNIQUE: Routine helical CT imaging was performed through the abdomen and pelvis. IV contrast: 100 cc of Optiray 320. Enteric contrast: None. Reconstructions: Coronal and sagittal. In accordance with CT protocol optimization, one or more of the following dose reduction techniques were utilized for this exam: automated exposure control, adjustment of mA and/or KV based on patient size, or use of iterative reconstructive technique. FINDINGS: Lung Bases: Increased opacity of the left lower lung, superimposed upon the chronic scarring, and patchy opacity in the right lower lung, not present previously. New very small left pleural effusion. Left diaphragmatic elevation is unchanged. Liver: Multiple cysts are unchanged. No new abnormality. Gallbladder/Bile Ducts: Punctate gallstone, not previously visualized. No wall thickening or adjacent fluid collections. No bile duct dilatation. Spleen: Normal. Pancreas: The mass in the head, atrophy distally, and dilatation of the pancreatic duct is unchanged. No acute inflammatory changes. Adrenal Glands: Normal. Kidneys: Cysts are unchanged. No hydronephrosis or calculi. Peritoneal Cavity/Bowel: No bowel dilatation. The same meeting and sigmoid colon diverticulosis, no sign of diverticulitis.. No free fluid, free air or adenopathy. No masses or acute inflammatory process. Pelvic Organs: The urinary bladder appears normal. No adenopathy or fluid collections. Multiple phleboliths and surgical clips. Vasculature: Atherosclerosis of the aorta and branch arteries. No aneurysm. Bones: Degenerative changes of the spine. IMPRESSION: Pancreatic head mass, consistent with the known pancreatic cancer, distal pancreatic atrophy, and pancreatic duct dilatation appear unchanged from 2018. Increasing opacity of both lower lung since prior examination consistent with atelectasis or pneumonia. New very small left pleural effusion. Cholelithiasis, no cysts sign of cholecystitis or bile duct dilatation. Pancreatic and renal cysts and other chronic findings are unchanged. EXAM: CHEST RADIOGRAPHY EXAM DATE: 05/02/2019 09:28 AM. CLINICAL HISTORY: Assess for PNA. Prior report indicates abdominal pain, history of pancreatic cancer, increasing bibasilar lung opacities. COMPARISON: RIBS 2 VIEW LT 01/16/2018 11:43 AM ABDOMEN/PELVIS W/ 05/02/2019 7:56 AM ABDOMEN/PELVIS W/ 11/02/2018 3:[address] CHEST ABDOMEN PELVIS W CONTRAST 04/16/2019 7:17 PM. TECHNIQUE: Upright AP view. FINDINGS: Lungs/Pleura: Moderate left hemidiaphragm elevation, as before. Mild left basilar airspace opacity. Lungs otherwise clear. No interstitial abnormality. No pneumothorax or gross pleural fluid. Mediastinum: Within exam limitations, the cardiomediastinal contour is normal. Right IJ Port-A-Cath, as before. Other: None. IMPRESSION: 1. Moderate left hemidiaphragm elevation, as before. 2. Mild left basilar airspace opacity which may reflect atelectasis or pneumonitis. - EKG Results EKG Interpreted Independently: Yes Core Measures - Anticipated LOS I expect patient to be DC'd or transferred within 96 hours.: Yes - DVT/VTE - Prophylaxis VTE/DVT Prophylaxis med ordered at admit?: Yes
--- NOTE | 2019-05-02 12:42 | PHARMACY PROGRESS NOTE ---
- Best Possible Medication History Admit Date and Time: 05/02/19 1007 Processed by: Pharmacy Medication History completed: Yes Patient Interview: Completed Secondary Source(s): Physician records, Pharmacy records As the person ultimately responsible for medication therapy, providers are able to order a medication from an existing home medication list in [facility] via the "Reconcile Routine" prior to Confirmation of that medication by pharmacy retail support specialist. Such practice is discouraged except when the physician, in their clinical judgment, deems that a medical need exists for a medication without regard to previous use.
[2019-05-02] MEDS ORDERED: FLUTICASONE NASAL SPRAY NAS PRN (13:12)
[2019-05-02] MEDS ORDERED: BUDESONIDE 0.5 MG/2 ML NEB INH PRN (13:33)
[2019-05-02 13:44] LABS: HB2 TOTAL 7.9 g/dL; HEMOGLOBIN A1C 0.42 g/dL
[2019-05-02] MEDS: hydrALAZINE 25 MG TABLET PO SCH ×2 (15:03→21:06)
[2019-05-02] MEDS: oxyCODONE 5 MG TABLET PO PRN ×2 (15:09→19:08)
[2019-05-02] MEDS: INSULIN ASPART 300 UNIT/3 ML PEN SUBQ SCH ×2 (16:57→20:55)
[2019-05-02] MEDS: SODIUM CHLORIDE FLUSH 0.9% 10 ML SYRINGE IVP SCH (19:08)
[2019-05-02] MEDS: SACCHAROMYCES BOULARDII 250 MG CAPSULE PO SCH (19:08)
[2019-05-02] MEDS: PIPERACILLIN/TAZOBACTAM 3.375 GM in SODIUM CHLORIDE 0.9% MINIBAG 100 ML IV SCH (19:09)
[2019-05-02] MEDS: ACETAMINOPHEN 325 MG TABLET PO PRN (19:10)
[2019-05-02] MEDS ORDERED: LACTATED RINGERS 1,000 ML IV ONE (20:25)
[2019-05-02] MEDS: FAMOTIDINE 20 MG TABLET PO SCH (20:56)
[2019-05-02] MEDS ORDERED: carvediloL 12.5 MG TABLET PO SCH (21:00)
[2019-05-03] MEDS: PIPERACILLIN/TAZOBACTAM 3.375 GM in SODIUM CHLORIDE 0.9% MINIBAG 100 ML IV SCH ×4 (00:51→17:37)
[2019-05-03] MEDS: SODIUM CHLORIDE FLUSH 0.9% 10 ML SYRINGE IVP SCH ×3 (00:53→16:45)
[2019-05-03] MEDS ORDERED: LACTATED RINGERS 1,000 ML IV ONE (01:38)
[2019-05-03] MEDS: SODIUM CHLORIDE 0.9% 1,000 ML IV SCH ×3 (03:52→19:51)
[2019-05-03] MEDS: ACETAMINOPHEN 325 MG TABLET PO PRN ×3 (04:32→21:46)
[2019-05-03] MEDS: hydrALAZINE 25 MG TABLET PO SCH ×3 (05:53→21:46)
[2019-05-03 06:44] LABS: BASOPHILS % (AUTO) 0.4 %; EOSINOPHILS % (AUTO) 5.3 %; LYMPHOCYTES % (AUTO) 24.5 %; MEAN CORPUSCULAR HEMOGLOBIN 28.9 pg (27.0-31.0); MEAN CORPUSCULAR HGB CONC 30.9 g/dL (32.0-36.0); MEAN CORPUSCULAR VOLUME 93.5 fL (80.0-94.0); MEAN PLATELET VOLUME 10.8 fL (7.4-11.4); MONOCYTES % (AUTO) 9.6 %; NEUTROPHILS % (AUTO) 50.9 %; PLT - PLATELET COUNT 227 10^3/uL (130-450); RED BLOOD COUNT 2.32 10^6/uL (4.70-6.10); RED CELL DISTRIBUTION WIDTH 20.8 % (12.0-15.0); WHITE BLOOD COUNT 19.9 x10^3/uL (4.8-10.8)
[2019-05-03 07:04] LABS: HGB - HEMOGLOBIN 6.7 g/dL (14.0-18.0)
[2019-05-03 07:05] LABS: ABNORMAL LYMPHS % (MANUAL) 0 %
[2019-05-03 07:12] LABS: CALCIUM 8.3 mg/dL (8.5-10.3); CREATININE 1.7 mg/dL (0.6-1.2)
[2019-05-03 07:20] LABS: BAND NEUTROPHILS % (MANUAL) 6 %; EOSINOPHILS # (MANUAL) 0.8 10^3/uL (0-0.7); LYMPHOCYTES # (MANUAL) 3.6 10^3/uL (1.5-3.5); LYMPHOCYTES % (MANUAL) 18 %; METAMYELOCYTES % (MANUAL) 1 %; MONOCYTES # (MANUAL) 2.2 10^3/uL (0.0-1.0); MYELOCYTES % (MANUAL) 1 %
[2019-05-03 07:26] LABS: PLATELET ESTIMATE, MANUAL NORMAL (130-450,000) (NORMAL); PLATELET MORPHOLOGY NORMAL APPEARANCE (NORMAL)
[2019-05-03 07:27] LABS: DIFFERENTIAL COMMENT MANUAL DIFFERENTIAL
[2019-05-03] MEDS ORDERED: SODIUM CHLORIDE 0.9% 500 ML ONE (07:46)
[2019-05-03] MEDS: INSULIN ASPART 300 UNIT/3 ML PEN SUBQ SCH ×4 (08:16→21:50)
[2019-05-03] MEDS ORDERED: LOSARTAN 50 MG TABLET PO SCH (09:00)
[2019-05-03] MEDS: SACCHAROMYCES BOULARDII 250 MG CAPSULE PO SCH ×2 (10:26→17:28)
[2019-05-03] MEDS: FAMOTIDINE 20 MG TABLET PO SCH ×2 (10:26→21:46)
[2019-05-03] MEDS: ASPIRIN EC 325 MG TABLET PO SCH (10:26)
[2019-05-03] MEDS: ENOXAPARIN 40 MG/0.4 ML SYRINGE SUBQ SCH (11:23)
[2019-05-03] MEDS: oxyCODONE 5 MG TABLET PO PRN ×3 (12:53→19:35)
[2019-05-03] MEDS: VANCOMYCIN INJ 1 GM in SODIUM CHLORIDE 0.9% 250 ML IV SCH (12:53)
--- NOTE | 2019-05-03 15:43 | PROVIDER PROGRESS NOTE ---
Assessment/Plan - Problem List (1) Sepsis Qualifiers: Sepsis acute organ dysfunction status: with acute organ dysfunction Severe sepsis acute organ dysfunction type: acute renal failure Acute renal failure type: unspecified Severe sepsis shock status: without septic shock Assessment/Plan: Improved mentation and tachypnea Continue to treat the underlying cause; pneumonia (2) Metabolic encephalopathy Assessment/Plan: Today he repeats himself, unclear if this is from being hard of hearing or his altered mental status. Continue hydration and treatment of infection (3) HCAP (healthcare-associated pneumonia) Assessment/Plan: Patient still on O2 supplemental which he does not have at home. Continue with IV antibiotics, Florastor, Mucinex for pulmonary toilet and inhalers. Will assess with walking with PT tomorrow and oximetry check before DCh (4) JILLIAN (acute kidney injury) Assessment/Plan: Improving with IV hydration and treatment of underlying problem (5) Diabetes mellitus Qualifiers: Diabetes mellitus type: type 2 Diabetes mellitus skilled nursing insulin use: without terminal clerk use Diabetes mellitus complication status: without complication Qualified Code(s): E11.9 - Type 2 diabetes mellitus without complications Assessment/Plan: Metformin was stopped as it was probably adding to the high lactic acid level Continue CC diet and SS insulin (6) Anemia Qualifiers: Anemia type: unspecified type Qualified Code(s): D64.9 - Anemia, unspecified Assessment/Plan: Hemoglobin dropped from 8-6.4 and therefore 1 unit PRBCs was ordered to be transfused. This is probably hemo-dilutional because of the fluid he got for his sepsis and high lactic acid level. Follow CBC daily. Transfuse if hemoglobin under 7 or if SOB (7) Hypertension Qualifiers: Hypertension type: essential hypertension Qualified Code(s): I10 - Essential (primary) hypertension Assessment/Plan: BP meds ordered to be resumed with hold orders if blood pressure still low (8) Asthma Qualifiers: Asthma severity: mild Asthma persistence: intermittent Asthma complicatio n type: unspecified Qualified Code(s): J45.20 - Mild intermittent asthma, uncomplicated Assessment/Plan: Inhalers to be used. (9) Low back pain Qualifiers: Chronicity: chronic Assessment/Plan: Pain in back was expressed by pt and he has pain meds as needed ordered (10) Pancreatic cancer Qualifiers: Pancreatic malignancy location: unspecified Qualified Code(s): C25.9 - Malignant neoplasm of pancreas, unspecified Assessment/Plan: Per history - Current Meds Current Meds: Current Medications Generic Name Dose Route Start Last Admin Trade Name Freq PRN Reason Stop Dose Admin Acetaminophen 650 mg 05/02/19 10:07 05/03/19 04:32 Tylenol PO 650 mg Q4HR PRN Administration Pain 1 to 4 Aspirin 325 mg 05/03/19 09:00 05/03/19 10:26 Ecotrin PO 325 mg DAILY INGRID Administration Enoxaparin Sodium 40 mg 05/03/19 09:00 05/03/19 11:23 Lovenox SUBQ 40 mg DAILY INGRID Administration Famotidine 10 mg 05/02/19 21:00 05/03/19 10:26 Pepcid PO 10 mg BID INGRID Administration Hydralazine HCl 50 mg 05/03/19 10:44 05/03/19 14:53 Apresoline PO 50 mg TID INGRID Administration Piperacillin Sod/Tazobactam 100 mls @ 200 mls/hr 05/02/19 18:00 05/03/19 12:15 Sod 3.375 gm/ Sodium Chloride IV Infused Q6HR INGRID Infusion Sodium Chloride 1,000 mls @ 100 mls/hr 05/02/19 12:00 05/03/19 12:52 Normal Saline 0.9% IV Not Given .Q10H INGRID Vancomycin HCl 1 gm/ Sodium 250 mls @ 167 mls/hr 05/03/19 13:00 05/03/19 14 :31 Chloride IV Infused Q24H INGRID Infusion Insulin Aspart 1 - 5 unit 05/02/19 17:00 05/03/19 11:34 Novolog SUBQ 1 unit 0800,1200,1700,2100 INGRID Administration Protocol Oxycodone HCl 5 mg 05/02/19 10:07 05/03/19 12:53 Roxicodone PO 5 mg Q4HR PRN Administration Pain 5 to 7 Oxycodone HCl 10 mg 05/02/19 10:07 05/02/19 19:08 Roxicodone PO 10 mg Q4HR PRN Administration Pain 8 to 10 Saccharomyces Boulardii 250 mg 05/02/19 17:00 05/03/19 10:26 Florastor PO 250 mg BIDWM INGRID Administration Sodium Chloride 10 ml 05/02/19 17:00 05/03/19 10:54 Normal Saline Flush 0.9% IVP Not Given 0100,0900,1700 INGRID - Lab Result Fish Bone Diagrams: 05/03/19 06:35 05/03/19 06:35 - Additional Planning My Orders: My Active Orders 05/03/19 Guaiac [OCCULT BLOOD IN PAT. SINGLE] [RAPID] Urgent 05/03/19 10:43 carvediloL [Coreg] 25 mg PO BID 05/03/19 10:44 hydrALAZINE [Apresoline] 50 mg PO TID 05/03/19 10:45 Losartan [Cozaar] 100 mg PO DAILY Subjective - Subjective Patient Reports: Feeling Better, No Complaints, Cough Objective Vital Signs: Vital Signs - 24 hr 05/02/19 05/02/19 05/02/19 16:00 16:05 20:00 Temperature 37.0 C Heart Rate 95 Heart Rate [ 88 Brachial] Respiratory 20 20 Rate Blood Pressure Blood Pressure [Left Brachial artery] Blood Pressure 125/66 [Right Brachial artery] O2 Saturation 86 L 95 05/02/19 05/03/19 05/03/19 21:00 00:00 05:49 Temperature 37.2 C Heart Rate Heart Rate [ 95 97 72 Brachial] Respiratory 20 18 Rate Blood Pressure Blood Pressure 126/45 L 106/57 L [Left Brachial artery] Blood Pressure 148/58 H [Right Brachial artery] O2 Saturation 96 94 05/03/19 05/03/19 05/03/19 07:37 09:04 09:07 Temperature 36.5 C 36.5 C 36.4 C L Heart Rate 68 68 Heart Rate [ 69 Brachial] Respiratory 22 16 16 Rate Blood Pressure 121/87 H 107/37 L Blood Pressure 121/87 H [Left Brachial artery] Blood Pressure [Right Brachial artery] O2 Saturation 92 05/03/19 05/03/19 05/03/19 09:17 10:23 12:20 Temperature 36.5 C 36.9 C Heart Rate 77 77 69 Heart Rate [ Brachial] Respiratory 20 18 Rate Blood Pressure 98/71 112/84 H 102/48 L Blood Pressure [Left Brachial artery] Blood Pressure [Right Brachial artery] O2 Saturation 05/03/19 14:42 Temperature 36.4 C L Heart Rate Heart Rate [ 78 Brachial] Respiratory 20 Rate Blood Pressure Blood Pressure 154/69 H [Left Brachial artery] Blood Pressure [Right Brachial artery] O2 Saturation 97 Oxygen O2 Source Nasal cannula I&O (Last 24 Hrs): Intake and Output Totals x24h 05/01/19 05/02/19 05/03/19 23:59 23:59 23:59 Intake Total 4855.000 2474.333 Output Total 300 440 Balance 4555.000 2034.333 General: Alert HEENT: Mucous membr. moist/pink, Other (Wearing )2 n.c.) Neck: Supple, No JVD Neuro: Alert, Non Focal Cardiovascular: Regular rate Respiratory: No respiratory distress, Breath sounds nml Abdomen: Soft Extremities: No edema - Results Results: Laboratory Results WBC 19.9 x10^3/uL (4.8-10.8) H 05/03/19 06:35 RBC 2.32 10^6/uL (4.70-6.10) L 05/03/19 06:35 Hgb 6.7 g/dL (14.0-18.0) L* 05/03/19 06:35 Hct 21.7 % (42.0-52.0) L 05/03/19 06:35 MCV 93.5 fL (80.0-94.0) 05/03/19 06:35 MCH 28.9 pg (27.0-31.0) 05/03/19 06:35 MCHC 30.9 g/dL (32.0-36.0) L 05/03/19 06:35 RDW 20.8 % (12.0-15.0) H 05/03/19 06:35 Plt Count 227 10^3/uL (130-450) 05/03/19 06:35 MPV 10.8 fL (7.4-11.4) 05/03/19 06:35 Neut # (Auto) Not Reportable 05/03/19 06:35 Lymph # (Auto) Not Reportable 05/03/19 06:35 [place] # (Auto) Not Reportable 05/03/19 06:35 Eos # (Auto) Not Reportable 05/03/19 06:35 Baso # (Auto) Not Reportable 05/03/19 06:35 Absolute Nucleated RBC Not Reportable 05/03/19 06:35 Total Counted 100 05/03/19 06:35 Band Neuts % (Manual) 6 % (0-10) 05/03/19 06:35 Reactive Lymphs % (Man) 1 % 05/02/19 06:15 Abnorm Lymph % (Manual) 0 % 05/03/19 06:35 Metamyelocytes % 1 % (-0) H 05/03/19 06:35 Myelocytes % 1 % (-0) H 05/03/19 06:35 Other Cells % 2 % 05/02/19 06:15 Nucleated RBC % Not Reportable 05/03/19 06:35 Neutrophils # (Manual) 12.9 10^3/uL (1.5-6.6) H 05/03/19 06:35 Lymphocytes # (Manual) 3.6 10^3/uL (1.5-3.5) H 05/03/19 06:35 Monocytes # (Manual) 2.2 10^3/uL (0.0-1.0) H 05/03/19 06:35 Eosinophils # (Manual) 0.8 10^3/uL (0-0.7) H 05/03/19 06:35 Basophils # (Manual) 0.0 10^3/uL (0-0.1) 05/03/19 06:35 Nucleated RBCs 10 % 05/03/19 06:35 Differential Comment MANUAL DIFFERENTIAL 05/03/19 06:35 WBC Morphology NORMAL APPEARANCE (NORMAL) 05/03/19 06:35 Platelet Estimate NORMAL (130-450,000) (NORMAL) 05/03/19 06:35 Platelet Morphology NORMAL APPEARANCE (NORMAL) 05/03/19 06:35 RBC Morph Micro Appear 2+ POLYCHROMASIA (NORMAL) 2+ HYPOCHROMASIA (NORMAL) 05/02/19 06:15 RBC Morph Micro Appear 2+ ANISOCYTOSIS (NORMAL) 1+ POLYCHROMASIA (NORMAL) 05/03/19 06:35 RBC Morph Micro Appear 2+ ANISOCYTOSIS (NORMAL) 1+ POLYCHROMASIA (NORMAL) 05/03/19 06:35 Sodium 136 mmol/L (135-145) 05/03/19 06:35 Potassium 4.3 mmol/L (3.5-5.0) 05/03/19 06:35 Chloride 105 mmol/L (101-111) 05/03/19 06:35 Carbon Dioxide 22 mmol/L (21-32) 05/03/19 06:35 Anion Gap 9.0 (6-13) 05/03/19 06:35 BUN 22 mg/dL (6-20) H 05/03/19 06:35 Creatinine 1.7 mg/dL (0.6-1.2) H 05/03/19 06:35 Estimated GFR (MDRD) 47 (>89) L 05/03/19 06:35 Glucose 124 mg/dL (70-100) H 05/03/19 06:35 Glycated Hemoglobin 7.0 % (4.6-6.2) H 05/02/19 06:15 Estim Average Glucose 154 (70-100) H 05/02/19 06:15 Lactic Acid 3.2 mmol/L (0.5-2.2) H* 05/03/19 07:20 Calcium 8.3 mg/dL (8.5-10.3) L 05/03/19 06:35 Iron 48 ug/dL (45-182) 05/03/19 06:35 TIBC 126 ug/dL (250-450) L 05/03/19 06:35 % Saturation 38 % (20-50) 05/03/19 06:35 Transferrin 90 mg/dL (180-329) L 05/03/19 06:35 Total Bilirubin 1.7 mg/dL (0.2-1.0) H 05/02/19 06:15 AST 59 IU/L (10-42) H 05/02/19 06:15 ALT 34 IU/L (10-60) 05/02/19 06:15 Alkaline Phosphatase 106 IU/L (42-121) 05/02/19 06:15 Total Protein 5.8 g/dL (6.7-8.2) L 05/02/19 06:15 Albumin 2.7 g/dL (3.2-5.5) L 05/02/19 06:15 Globulin 3.1 g/dL (2.1-4.2) 05/02/19 06:15 Albumin/Globulin Ratio 0.9 (1.0-2.2) L 05/02/19 06:15 Lipase 19 U/L (22-51) L 05/02/19 06:15 Vitamin B12 3896 pg/mL (180-914) H 05/03/19 06:35 Folate 28.00 ng/mL (5.90 - >24.8) 05/03/19 06:35 Urine Color DARK YELLOW 05/02/19 08:15 Urine Clarity CLEAR (CLEAR) 05/02/19 08:15 Urine pH 5.5 PH (5.0-7.5) 05/02/19 08:15 Ur Specific [place] 1.015 (1.002-1.030) 05/02/19 08:15 Urine Protein NEGATIVE mg/dL (NEGATIVE) 05/02/19 08:15 Urine Glucose (UA) NEGATIVE mg/dL (NEGATIVE) 05/02/19 08:15 Urine Ketones NEGATIVE mg/dL (NEGATIVE) 05/02/19 08:15 Urine Occult Blood NEGATIVE (NEGATIVE) 05/02/19 08:15 Urine Nitrite NEGATIVE (NEGATIVE) 05/02/19 08:15 Urine Bilirubin NEGATIVE (NEGATIVE) 05/02/19 08:15 Urine Urobilinogen 1 (NORMAL) E.U./dL (NORMAL) 05/02/19 08:15 Ur Leukocyte Esterase NEGATIVE (NEGATIVE) 05/02/19 08:15 Ur Microscopic Review NOT INDICATED 05/02/19 08:15 Urine Culture Comments NOT INDICATED 05/02/19 08:15 Influenza A (Rapid) Negative (Negative) 05/02/19 14:50 Influenza B (Rapid) Negative (Negative) 05/02/19 14:50 Slides for Path Review Indicated 05/03/19 06:35 Blood Type O POSITIVE 05/03/19 07:20 Blood Type Recheck O POSITIVE 05/03/19 06:35 Antibody Screen NEGATIVE 05/03/19 07:20 Crossmatch IS Only See Detail 05/03/19 07:20 - Procedures Procedures: Procedures EXCISION OF LARGE INTESTINE, ENDO, DIAGN (09/06/15) EXCISION OF TRANSVERSE COLON, ENDO (09/06/15) Sepsis Event Note (H) - Evaluation Current Stage of Sepsis: Sepsis Possible source of Sepsis: positive: Pulmonary - Sepsis Criteria Sepsis Criteria: Recorded Respiratory Rate greater than 20, WBC count greater than 12,000 or less than 4000, PRODUCT EXAMINER: altered consciousness (unrelated to primary neuro pathology), Metabolic: lactate > 2 mmol/L
[2019-05-03] MEDS: carvediloL 12.5 MG TABLET PO SCH (21:46)
[2019-05-03] MEDS: guaiFENesin 600 MG TABLET PO SCH (21:47)
[2019-05-04] MEDS: PIPERACILLIN/TAZOBACTAM 3.375 GM in SODIUM CHLORIDE 0.9% MINIBAG 100 ML IV SCH ×4 (00:23→17:44)
[2019-05-04] MEDS: SODIUM CHLORIDE FLUSH 0.9% 10 ML SYRINGE IVP SCH ×3 (00:29→17:40)
[2019-05-04] MEDS: ACETAMINOPHEN 325 MG TABLET PO PRN ×4 (01:30→17:44)
[2019-05-04 05:27] LABS: BASOPHILS % (AUTO) 0.6 %; EOSINOPHILS % (AUTO) 7.6 %; HGB - HEMOGLOBIN 7.9 g/dL (14.0-18.0); LYMPHOCYTES % (AUTO) 24.3 %; MEAN CORPUSCULAR HEMOGLOBIN 28.6 pg (27.0-31.0); MEAN CORPUSCULAR VOLUME 92.4 fL (80.0-94.0); MEAN PLATELET VOLUME 10.2 fL (7.4-11.4); MONOCYTES % (AUTO) 7.9 %; NEUTROPHILS % (AUTO) 49.7 %; PLT - PLATELET COUNT 231 10^3/uL (130-450); RED BLOOD COUNT 2.76 10^6/uL (4.70-6.10); RED CELL DISTRIBUTION WIDTH 20.8 % (12.0-15.0)
[2019-05-04 05:37] LABS: ABNORMAL LYMPHS % (MANUAL) 0 %
[2019-05-04 05:39] LABS: CALCIUM 8.7 mg/dL (8.5-10.3); CREATININE 1.5 mg/dL (0.6-1.2)
[2019-05-04] MEDS: hydrALAZINE 25 MG TABLET PO SCH ×3 (05:51→21:14)
[2019-05-04 06:03] LABS: BAND NEUTROPHILS % (MANUAL) 6 %; EOSINOPHILS # (MANUAL) 1.3 10^3/uL (0-0.7); LYMPHOCYTES # (MANUAL) 3.8 10^3/uL (1.5-3.5); LYMPHOCYTES % (MANUAL) 20 %; METAMYELOCYTES % (MANUAL) 2 %; MONOCYTES # (MANUAL) 1.7 10^3/uL (0.0-1.0); MYELOCYTES % (MANUAL) 1 %
[2019-05-04 06:05] LABS: DIFFERENTIAL COMMENT MANUAL DIFFERENTIAL; PLATELET ESTIMATE, MANUAL NORMAL (130-450,000) (NORMAL); PLATELET MORPHOLOGY NORMAL APPEARANCE (NORMAL)
[2019-05-04] MEDS: SODIUM CHLORIDE 0.9% 1,000 ML IV SCH ×2 (07:05→17:39)
[2019-05-04] MEDS: INSULIN ASPART 300 UNIT/3 ML PEN SUBQ SCH ×4 (09:01→20:58)
[2019-05-04] MEDS: LOSARTAN 50 MG TABLET PO SCH (09:02)
[2019-05-04] MEDS: ASPIRIN EC 325 MG TABLET PO SCH (09:02)
[2019-05-04] MEDS: guaiFENesin 600 MG TABLET PO SCH ×2 (09:02→20:37)
[2019-05-04] MEDS: SACCHAROMYCES BOULARDII 250 MG CAPSULE PO SCH ×2 (09:02→17:40)
[2019-05-04] MEDS: FAMOTIDINE 20 MG TABLET PO SCH ×2 (09:03→20:36)
[2019-05-04] MEDS: carvediloL 12.5 MG TABLET PO SCH ×2 (09:03→20:36)
[2019-05-04] MEDS: ENOXAPARIN 40 MG/0.4 ML SYRINGE SUBQ SCH (09:03)
[2019-05-04] MEDS: VANCOMYCIN INJ 1 GM in SODIUM CHLORIDE 0.9% 250 ML IV SCH (12:24)
--- NOTE | 2019-05-04 16:16 | PROVIDER PROGRESS NOTE ---
Assessment/Plan - Problem List (1) Metabolic encephalopathy Assessment/Plan: The patient is either hard of hearing or still confused and answering questions that are unrelated, also possibly because of the Ambien and the oversedation Will stop the Ambien. Continue to monitor. Treat the underlying infection (2) HCAP (healthcare-associated pneumonia) Assessment/Plan: He is on empiric IV antibiotics. Await sputum and blood cultures Try to wean down supplemental oxygen if possible (3) JILLIAN (acute kidney injury) Assessment/Plan: Creatinine is improving daily with the current management (4) Diabetes mellitus Qualifiers: Diabetes mellitus type: type 2 Diabetes mellitus vermin exterminator insulin use: without usp use Diabetes mellitus complication status: without complication Qualified Code(s): E11.9 - Type 2 diabetes mellitus without complications Assessment/Plan: Continue CC diet and SS insulin (5) Anemia Qualifiers: Anemia type: unspecified type Qualified Code(s): D64.9 - Anemia, unspecified Assessment/Plan: His anemia appears to be related to chemotherapy. He needed 1 blood transfusion Follow CBC daily. Transfuse if hemoglobin under (6) Hypertension Qualifiers: Hypertension type: essential hypertension Qualified Code(s): I10 - Essential (primary) hypertension Assessment/Plan: Stable on current management (7) Asthma Qualifiers: Asthma severity: mild Asthma persistence: intermittent Asthma complication type: unspecified Qualified Code(s): J45.20 - Mild intermittent asthma, uncomplicated Assessment/Plan: Continue with inhalers (8) Low back pain Qualifiers: Chronicity: chronic Assessment/Plan: Continue with heat packs and pain meds as needed, decreasing narcotic use, Due to confusion (9) Pancreatic cancer Qualifiers: Pancreatic malignancy location: unspecified Qualified Code(s): C25.9 - Malignant neoplasm of pancreas, unspecified Assessment/Plan: Chemotherapy is still underway (10) Sepsis Qualifiers: Sepsis acute organ dysfunction status: with acute organ dysfunction Severe sepsis acute organ dysfunction type: acute renal failure Acute renal failure type: unspecified Severe sepsis shock status: without septic shock Assessment/Plan: Resolved - Current Meds Current Meds: Current Medications Generic Name Dose Route Start Last Admin Trade Name Freq PRN Reason Stop Dose Admin Acetaminophen 650 mg 05/02/19 10:07 05/04/19 10:41 Tylenol PO 650 mg Q4HR PRN Administration Pain 1 to 4 Aspirin 325 mg 05/03/19 09:00 05/04/19 09:02 Ecotrin PO 325 mg DAILY INGRID Administration Carvedilol 25 mg 05/03/19 10:43 05/04/19 09:03 Coreg PO Not Given BID [facility] Enoxaparin Sodium 40 mg 05/03/19 09:00 05/04/19 09:03 Lovenox SUBQ 40 mg DAILY INGRID Administration Famotidine 10 mg 05/02/19 21:00 05/04/19 09:03 Pepcid PO 10 mg BID INGRID Administration Guaifenesin 600 mg 05/03/19 21:00 05/04/19 09:02 Mucinex PO 600 mg BID INGRID Administration Hydralazine HCl 50 mg 05/03/19 10:44 05/04/19 14:17 Apresoline PO 50 mg TID INGRID Administration Piperacillin Sod/Tazobactam 100 mls @ 200 mls/hr 05/02/19 18:00 05/04/19 12:30 Sod 3.375 gm/ Sodium Chloride IV Infused Q6HR INGRID Infusion Sodium Chloride 1,000 mls @ 100 mls/hr 05/02/19 12:00 05/04/19 07:05 Normal Saline 0.9% IV 100 mls/hr .Q10H INGRID Administration Vancomycin HCl 1 gm/ Sodium 250 mls @ 167 mls/hr 05/03/19 13:00 05/04/19 12:24 Chloride IV 167 mls/hr Q24H INGRID Administration Insulin Aspart 1 - 5 unit 05/02/19 17:00 05/04/19 11:54 Novolog SUBQ Not Given 0800,1200,1700,2100 [facility] Protocol Losartan Potassium 100 mg 05/03/19 10:45 05/04/19 09:02 Cozaar PO Not Given DAILY [facility] Oxycodone HCl 5 mg 05/02/19 10:07 05/03/19 17:29 Roxicodone PO 5 mg Q4HR PRN Administration Pain 5 to 7 Oxycodone HCl 10 mg 05/02/19 10:07 05/03/19 19:35 Roxicodone PO 5 mg Q4HR PRN Administration Pain 8 to 10 Saccharomyces Boulardii 250 mg 05/02/19 17:00 05/04/19 09:02 Florastor PO 250 mg BIDWM INGRID Administration Sodium Chloride 10 ml 05/02/19 17:00 05/04/19 09:04 Normal Saline Flush 0.9% IVP Not Given 0100,0900,1700 INGRID - Lab Result Fish Bone Diagrams: 05/05/19 07:35 05/05/19 07:35 - Additional Planning My Orders: My Active Orders 05/03/19 21:00 guaiFENesin [Mucinex] 600 mg PO BID 05/04/19 Evaluate and Treat PT [PT] Routine Subjective - Subjective Patient Reports: Feeling Better, Resting Comfortably Nursing Reports: Other (He was confused overnight, received Ambien p.o., he has been very lethargic all morning until late morning.) Objective Vital Signs: Vital Signs - 24 hr 05/03/19 05/03/19 05/03/19 20:00 20:13 21:44 Temperature Heart Rate 87 Heart Rate [ Activity] Heart Rate [ 87 Brachial] Respiratory 18 Rate Respiratory Rate [With Activity] Blood Pressure [Activity] Blood Pressure 135/67 H [Left Brachial artery] O2 Saturation 93 95 05/03/19 05/04/19 05/04/19 23:44 05:47 08:00 Temperature 36.5 C 36.1 C L Heart Rate Heart Rate [ Activity] Heart Rate [ 80 88 70 Brachial] Respiratory 18 18 Rate Respiratory Rate [With Activity] Blood Pressure [Activity] Blood Pressure 140/70 H 130/77 117/62 [Left Brachial artery] O2 Saturation 96 94 05/04/19 05/04/19 11:33 14:19 Temperature Heart Rate Heart Rate [ 79 Activity] Heart Rate [ Brachial] Respiratory Rate Respiratory 12 Rate [With Activity] Blood Pressure 91/61 [Activity] Blood Pressure 145/50 H [Left Brachial artery] O2 Saturation Oxygen O2 Source [With Activity] Nasal cannula O2 Source Nasal cannula I&O (Last 24 Hrs): Intake and Output Totals x24h 05/02/19 05/03/19 05/04/19 23:59 23:59 23:59 Intake Total 4855.000 3626.000 1460.000 Output Total 300 440 150 Balance 4555.000 3186.000 1310.000 General: Alert HEENT: Mucous membr. moist/pink Neck: Supple Neuro: Disoriented, Non Focal Respiratory: Other (Rhonchi in the right side) Abdomen: Normal bowel sounds, Soft Extremities: No edema - Results Results: Laboratory Results WBC 19.0 x10^3/uL (4.8-10.8) H 05/04/19 05:18 RBC 2.76 10^6/uL (4.70-6.10) L 05/04/19 05:18 Hgb 7.9 g/dL (14.0-18.0) L 05/04/19 05:18 Hct 25.5 % (42.0-52.0) L 05/04/19 05:18 MCV 92.4 fL (80.0-94.0) 05/04/19 05:18 MCH 28.6 pg (27.0-31.0) 05/04/19 05:18 MCHC 31.0 g/dL (32.0-36.0) L 05/04/19 05:18 RDW 20.8 % (12.0-15.0) H 05/04/19 05:18 Plt Count 231 10^3/uL (130-450) 05/04/19 05:18 MPV 10.2 fL (7.4-11.4) 05/04/19 05:18 Neut # (Auto) Not Reportable 05/04/19 05:18 Lymph # (Auto) Not Reportable 05/04/19 05:18 [place] # (Auto) Not Reportable 05/04/19 05:18 Eos # (Auto) Not Reportable 05/04/19 05:18 Baso # (Auto) Not Reportable 05/04/19 05:18 Absolute Nucleated RBC Not Reportable 05/04/19 05:18 Total Counted 100 05/04/19 05:18 Band Neuts % (Manual) 6 % (0-10) 05/04/19 05:18 Reactive Lymphs % (Man) 1 % 05/02/19 06:15 Abnorm Lymph % (Manual) 0 % 05/04/19 05:18 Metamyelocytes % 2 % (-0) H 05/04/19 05:18 Myelocytes % 1 % (-0) H 05/04/19 05:18 Other Cells % 2 % 05/02/19 06:15 Nucleated RBC % Not Reportable 05/04/19 05:18 Neutrophils # (Manual) 11.6 10^3/uL (1.5-6.6) H 05/04/19 05:18 Lymphocytes # (Manual) 3.8 10^3/uL (1.5-3.5) H 05/04/19 05:18 Monocytes # (Manual) 1.7 10^3/uL (0.0-1.0) H 05/04/19 05:18 Eosinophils # (Manual) 1.3 10^3/uL (0-0.7) H 05/04/19 05:18 Basophils # (Manual) 0.0 10^3/uL (0-0.1) 05/04/19 05:18 Nucleated RBCs 11 % 05/04/19 05:18 Differential Comment MANUAL DIFFERENTIAL 05/04/19 05:18 WBC Morphology NORMAL APPEARANCE (NORMAL) 05/04/19 05:18 Platelet Estimate NORMAL (130-450,000) (NORMAL) 05/04/19 05:18 Platelet Morphology NORMAL APPEARANCE (NORMAL) 05/04/19 05:18 RBC Morph Micro Appear 2+ ANISOCYTOSIS (NORMAL) 1+ POLYCHROMASIA (NORMAL) 05/03/19 06:35 RBC Morph Micro Appear 2+ ANISOCYTOSIS (NORMAL) 1+ POLYCHROMASIA (NORMAL) 05/03/19 06:35 RBC Morph Micro Appear 2+ ANISOCYTOSIS (NORMAL) 1+ POLYCHROMASIA (NORMAL) 05/04/19 05:18 RBC Morph Micro Appear 2+ ANISOCYTOSIS (NORMAL) 1+ POLYCHROMASIA (NORMAL) 05/04/19 05:18 Sodium 139 mmol/L (135-145) 05/04/19 05:18 Potassium 3.8 mmol/L (3.5-5.0) 05/04/19 05:18 Chloride 111 mmol/L (101-111) 05/04/19 05:18 Carbon Dioxide 19 mmol/L (21-32) L 05/04/19 05:18 Anion Gap 9.0 (6-13) 05/04/19 05:18 BUN 24 mg/dL (6-20) H 05/04/19 05:18 Creatinine 1.5 mg/dL (0.6-1.2) H 05/04/19 05:18 Estimated GFR (MDRD) 54 (>89) L 05/04/19 05:18 Glucose 97 mg/dL (70-100) 05/04/19 05:18 Glycated Hemoglobin 7.0 % (4.6-6.2) H 05/02/19 06:15 Estim Average Glucose 154 (70-100) H 05/02/19 06:15 Lactic Acid 2.3 mmol/L (0.5-2.2) H 05/04/19 05:18 Calcium 8.7 mg/dL (8.5-10.3) 05/04/19 05:18 Iron 48 ug/dL (45-182) 05/03/19 06:35 TIBC 126 ug/dL (250-450) L 05/03/19 06:35 % Saturation 38 % (20-50) 05/03/19 06:35 Transferrin 90 mg/dL (180-329) L 05/03/19 06:35 Total Bilirubin 1.7 mg/dL (0.2-1.0) H 05/02/19 06:15 AST 59 IU/L (10-42) H 05/02/19 06:15 ALT 34 IU/L (10-60) 05/02/19 06:15 Alkaline Phosphatase 106 IU/L (42-121) 05/02/19 06:15 Total Protein 5.8 g/dL (6.7-8.2) L 05/02/19 06:15 Albumin 2.7 g/dL (3.2-5.5) L 05/02/19 06:15 Globulin 3.1 g/dL (2.1-4.2) 05/02/19 06:15 Albumin/Globulin Ratio 0.9 (1.0-2.2) L 05/02/19 06:15 Lipase 19 U/L (22-51) L 05/02/19 06:15 Vitamin B12 3896 pg/mL (180-914) H 05/03/19 06:35 Folate 28.00 ng/mL (5.90 - >24.8) 05/03/19 06:35 Urine Color DARK YELLOW 05/02/19 08:15 Urine Clarity CLEAR (CLEAR) 05/02/19 08:15 Urine pH 5.5 PH (5.0-7.5) 05/02/19 08:15 Ur Specific [place] 1.015 (1.002-1.030) 05/02/19 08:15 Urine Protein NEGATIVE mg/dL (NEGATIVE) 05/02/19 08:15 Urine Glucose (UA) NEGATIVE mg/dL (NEGATIVE) 05/02/19 08:15 Urine Ketones NEGATIVE mg/dL (NEGATIVE) 05/02/19 08:15 Urine Occult Blood NEGATIVE (NEGATIVE) 05/02/19 08:15 Urine Nitrite NEGATIVE (NEGATIVE) 05/02/19 08:15 Urine Bilirubin NEGATIVE (NEGATIVE) 05/02/19 08:15 Urine Urobilinogen 1 (NORMAL) E.U./dL (NORMAL) 05/02/19 08:15 Ur Leukocyte Esterase NEGATIVE (NEGATIVE) 05/02/19 08:15 Ur Microscopic Review NOT INDICATED 05/02/19 08:15 Urine Culture Comments NOT INDICATED 05/02/19 08:15 Influenza A (Rapid) Negative (Negative) 05/02/19 14:50 Influenza B (Rapid) Negative (Negative) 05/02/19 14:50 Slides for Path Review Indicated 05/03/19 06:35 Blood Type O POSITIVE 05/03/19 07:20 Blood Type Recheck O POSITIVE 05/03/19 06:35 Antibody Screen NEGATIVE 05/03/19 07:20 Crossmatch IS Only See Detail 05/03/19 07:20 - Procedures Procedures: Procedures EXCISION OF LARGE INTESTINE, ENDO, DIAGN (09/06/15) EXCISION OF TRANSVERSE COLON, ENDO (09/06/15) Sepsis Event Note (H) - Evaluation Current Stage of Sepsis: Sepsis Possible source of Sepsis: positive: Pulmonary - Sepsis Criteria Sepsis Criteria: Recorded Respiratory Rate greater than 20, WBC count greater than 12,000 or less than 4000, ASBESTOS CLOTH INSPECTOR: altered consciousness (unrelated to primary neuro pathology), Metabolic: lactate > 2 mmol/L
[2019-05-05] MEDS: IPRATROPIUM/ALBUTEROL 3 ML NEB INH PRN ×2 (00:01→09:13)
[2019-05-05] MEDS: ACETAMINOPHEN 325 MG TABLET PO PRN ×3 (00:47→18:46)
[2019-05-05] MEDS: PIPERACILLIN/TAZOBACTAM 3.375 GM in SODIUM CHLORIDE 0.9% MINIBAG 100 ML IV SCH ×4 (00:51→17:34)
[2019-05-05] MEDS: SODIUM CHLORIDE FLUSH 0.9% 10 ML SYRINGE IVP SCH ×3 (01:55→16:17)
[2019-05-05] MEDS: SODIUM CHLORIDE 0.9% 1,000 ML IV SCH ×2 (04:51→16:17)
[2019-05-05] MEDS: hydrALAZINE 25 MG TABLET PO SCH ×3 (05:44→21:22)
[2019-05-05 07:49] LABS: CALCIUM 7.4 mg/dL (8.5-10.3); CREATININE 1.4 mg/dL (0.6-1.2)
[2019-05-05 07:54] LABS: BASOPHILS % (AUTO) 0.4 %; EOSINOPHILS % (AUTO) 4.8 %; LYMPHOCYTES % (AUTO) 23.9 %; MEAN CORPUSCULAR HEMOGLOBIN 29.3 pg (27.0-31.0); MEAN CORPUSCULAR HGB CONC 30.8 g/dL (32.0-36.0); MEAN CORPUSCULAR VOLUME 95.2 fL (80.0-94.0); MONOCYTES % (AUTO) 8.2 %; NEUTROPHILS % (AUTO) 54.7 %; PLT - PLATELET COUNT 270 10^3/uL (130-450); RED BLOOD COUNT 2.73 10^6/uL (4.70-6.10); RED CELL DISTRIBUTION WIDTH 21.8 % (12.0-15.0)
[2019-05-05 07:57] LABS: ABNORMAL LYMPHS % (MANUAL) 0 %
[2019-05-05] MEDS: SACCHAROMYCES BOULARDII 250 MG CAPSULE PO SCH ×2 (08:16→16:17)
[2019-05-05] MEDS: guaiFENesin 600 MG TABLET PO SCH ×2 (08:16→21:22)
[2019-05-05] MEDS: INSULIN ASPART 300 UNIT/3 ML PEN SUBQ SCH ×4 (08:16→22:23)
[2019-05-05 08:17] LABS: BAND NEUTROPHILS % (MANUAL) 6 %; EOSINOPHILS # (MANUAL) 0.7 10^3/uL (0-0.7); LYMPHOCYTES # (MANUAL) 2.7 10^3/uL (1.5-3.5); LYMPHOCYTES % (MANUAL) 3 %; MONOCYTES # (MANUAL) 1.2 10^3/uL (0.0-1.0)
[2019-05-05] MEDS: LOSARTAN 50 MG TABLET PO SCH ×2 (08:17→08:22)
[2019-05-05] MEDS: oxyCODONE 5 MG TABLET PO PRN (08:17)
[2019-05-05] MEDS: carvediloL 12.5 MG TABLET PO SCH ×3 (08:17→21:22)
[2019-05-05 08:18] LABS: DIFFERENTIAL COMMENT MANUAL DIFFERENTIAL; RBC MORPHOLOGY (MULTIPLE) 3+ ANISOCYTOSIS (NORMAL)
[2019-05-05] MEDS: FAMOTIDINE 20 MG TABLET PO SCH ×2 (08:18→21:23)
[2019-05-05] MEDS: ASPIRIN EC 325 MG TABLET PO SCH (08:18)
[2019-05-05] MEDS: ENOXAPARIN 40 MG/0.4 ML SYRINGE SUBQ SCH (08:19)
[2019-05-05] MEDS: VANCOMYCIN INJ 1 GM in SODIUM CHLORIDE 0.9% 250 ML IV SCH (13:44)
[2019-05-05 13:55] LABS: VANCOMYCIN,TROUGH 14.2 ug/mL (10.0-20.0)
--- NOTE | 2019-05-05 14:35 | XRAY Report ---
Reason: Worsening oxygen desats, eval for CHF vs worse PNA Procedure Date: 05/05/2019 Accession Number: [id number] / [id number] Procedure: XR - Chest 1 View X-Ray CPT Code: 11029 Final Report FULL RESULT: EXAM: CHEST RADIOGRAPHY EXAM DATE: 05/05/2019 02:03 PM. CLINICAL HISTORY: Worsening oxygen desaturation, evaluate for congestive heart failure vs worse pneumonia. COMPARISON: CHEST 1 VIEW 05/02/2019 9:11 AM. TECHNIQUE: 1 view. FINDINGS: Lungs/Pleura: Interval increase in confluent airspace opacities emanating from the naseem regions. No definite pulmonary edema. No pleural effusion or pneumothorax within the limits of visualization. Mediastinum: The visualized portions of the mediastinal outline are similar to prior. Other: The markedly elevated left hemidiaphragm is again seen with the stomach bubble prominently gas distended. Right subclavian vein central venous port is noted. IMPRESSION: Redemonstration of markedly elevated left hemidiaphragm, possibly improved by decompression of the stomach. Interval increase in bilateral pulmonary opacities as described. RADIA
--- NOTE | 2019-05-05 18:27 | PROVIDER PROGRESS NOTE ---
Assessment/Plan - Problem List (1) Metabolic encephalopathy Assessment/Plan: He still has signs of being intermittently confused. He is able to do ADLs and follow commands. Continue to monitor (2) HCAP (healthcare-associated pneumonia) Assessment/Plan: Because of the worsening desaturations with activity, a chest x-ray was ordered. The chest x-ray showed worsening of pneumonia which is now bilateral. Will change inhalers prn to scheduled nbs. Will order heated high flow, continuous aerosol O2, discussed with RT. The patient may need transfer for a bronchoscopy, Discussed this possibility with the patient and as well. The would like him to go to [facility] if it is needed. (3) JILLIAN (acute kidney injury) Assessment/Plan: Improving slowly daily with current management (4) Diabetes mellitus Qualifiers: Diabetes mellitus type: type 2 Diabetes mellitus watermelon harvesting supervisor insulin use: without watermelon harvesting supervisor use Diabetes mellitus complication status: without complication Qualified Code(s): E11.9 - Type 2 diabetes mellitus without complications Assessment/Plan: Continue with CC diet and SS Insulin (5) Anemia Qualifiers: Anemia type: unspecified type Qualified Code(s): D64.9 - Anemia, unspecified Assessment/Plan: This appears to be stable, after he needed 1 unit of blood transfused. It also appears to be related to his chemotherapy and anemia of chronic disease. Follow CBC daily Transfuse with blood if hemoglobin less than 7 (6) Hypertension Qualifiers: Hypertension type: essential hypertension Qualified Code(s): I10 - Essential (primary) hypertension Assessment/Plan: Stable on current medications (7) Asthma Qualifiers: Asthma severity: mild Asthma persistence: intermittent Asthma complication type: unspecified Qualified Code(s): J45.20 - Mild intermittent asthma, uncomplicated Assessment/Plan: Will adjust inhalers to improve ventilation which may help with mobilizing secretions (8) Low back pain Qualifiers: Chronicity: chronic Assessment/Plan: Heat packs and PRN pain meds are used, keeping narcotics to a minimum because of his confusion (9) Pancreatic cancer Qualifiers: Pancreatic malignancy location: unspecified Qualified Code(s): C25.9 - Malignant neoplasm of pancreas, unspecified Assessment/Plan: Chemotherapy is still planned (10) Sepsis Qualifiers: Sepsis acute organ dysfunction status: with acute organ dysfunction Severe sepsis acute organ dysfunction type: acute renal failure Acute renal failure type: unspecified Severe sepsis shock status: without septic shock Assessment/Plan: Resolved - Current Meds Current Meds: Current Medications Generic Name Dose Route Start Last Admin Trade Name Freq PRN Reason Stop Dose Admin Acetaminophen 650 mg 05/02/19 10:07 05/05/19 13:44 Tylenol PO 650 mg Q4HR PRN Administration Pain 1 to 4 Albuterol/Ipratropium 3 ml 05/02/19 10:15 05/05/19 09:13 Duoneb INH 3 ml RTQID PRN Administration Wheezing Aspirin 325 mg 05/03/19 09:00 05/05/19 08:18 Ecotrin PO 325 mg DAILY INGRID Administration Budesonide 0.5 mg 05/02/19 13:33 05/05/19 09:13 Pulmicort INH 0.5 mg RTBID PRN Administration Shortness of Air/Wheezing Carvedilol 25 mg 05/03/19 10:43 05/05/19 08:22 Coreg PO Not Given BID INGRID Enoxaparin Sodium 40 mg 05/03/19 09:00 05/05/19 08:19 Lovenox SUBQ 40 mg DAILY INGRID Administration Famotidine 10 mg 05/02/19 21:00 05/05/19 08:18 Pepcid PO 10 mg BID INGRID Administration Guaifenesin 600 mg 05/03/19 21:00 05/05/19 08:16 Mucinex PO 600 mg BID INGRID Administration Hydralazine HCl 50 mg 05/03/19 10:44 05/05/19 15:18 Apresoline PO 50 mg TID INGRID Administration Piperacillin Sod/Tazobactam 100 mls @ 200 mls/hr 05/02/19 18:00 05/05/19 17:34 Sod 3.375 gm/ Sodium Chloride IV 200 mls/hr Q6HR INGRID Administration Sodium Chloride 1,000 mls @ 100 mls/hr 05/02/19 12:00 05/05/19 16:17 Normal Saline 0.9% IV 100 mls/hr .Q10H INGRID Administration Insulin Aspart 1 - 5 unit 05/02/19 17:00 05/05/19 16:23 Novolog SUBQ Not Given 0800,1200,1700,2100 [facility] Protocol Losartan Potassium 100 mg 05/03/19 10:45 05/05/19 08:22 Cozaar PO Not Given DAILY [facility] Oxycodone HCl 5 mg 05/02/19 10:07 05/03/19 17:29 Roxicodone PO 5 mg Q4HR PRN Administration Pain 5 to 7 Oxycodone HCl 10 mg 05/02/19 10:07 05/05/19 08:17 Roxicodone PO 10 mg Q4HR PRN Administration Pain 8 to 10 Saccharomyces Boulardii 250 mg 05/02/19 17:00 05/05/19 16:17 Florastor PO 250 mg BIDWM INGRID Administration Sodium Chloride 10 ml 05/02/19 17:00 05/05/19 16:17 Normal Saline Flush 0.9% IVP Not Given 0100,0900,1700 INGRID - Lab Result Fish Bone Diagrams: 05/05/19 07:35 05/05/19 07:35 - Additional Planning My Orders: My Active Orders 05/08/19 12:30 VANCOMYCIN TROUGH [CHEM] Timed Subjective - Subjective Patient Reports: Other (Has shaking chills) Nursing Reports: Confused, Shortness of Breath, Other (Saturations were worse today when walking with PT, his supplemental oxygen need to be increased) Objective Vital Signs: Vital Signs - 24 hr 05/04/19 05/04/19 05/05/19 20:35 23:40 00:04 Temperature 36.3 C L Heart Rate 80 Heart Rate [ 84 91 Brachial] Respiratory 20 16 Rate Blood Pressure 138/66 H [Left Brachial artery] Blood Pressure 148/65 H [Right Brachial artery] O2 Saturation 93 05/05/19 05/05/19 05/05/19 01:02 05:40 08:00 Temperature 35 C L Heart Rate Heart Rate [ 74 71 Brachial] Respiratory 20 124 H Rate Blood Pressure [Left Brachial artery] Blood Pressure 108/64 114/66 [Right Brachial artery] O2 Saturation 95 100 05/05/19 05/05/19 05/05/19 09:13 14:58 15:32 Temperature 35 C L Heart Rate 72 Heart Rate [ 76 Brachial] Respiratory 26 H 20 Rate Blood Pressure 145/81 H 129/76 [Left Brachial artery] Blood Pressure [Right Brachial artery] O2 Saturation 100 Oxygen O2 Source [With Activity] Nasal cannula O2 Source Nasal cannula I&O (Last 24 Hrs): Intake and Output Totals x24h 05/03/19 05/04/19 05/05/19 23:59 23:59 23:59 Intake Total 3626.000 3150.000 3030.000 Output Total 440 290 Balance 3186.000 2860.000 3030.000 General: Alert HEENT: Mucous membr. moist/pink, Other (wearing O2 per n.c.) Neck: Supple Neuro: Non Focal, Other (Poor memory or hard of hearing or still intermittently confused) Cardiovascular: Regular rate, No murmurs Respiratory: Other (Bi-basilar rhonchi) Abdomen: Normal bowel sounds, Soft Extremities: No edema - Results Results: Laboratory Results WBC 17.0 x10^3/uL (4.8-10.8) H 05/05/19 07:35 RBC 2.73 10^6/uL (4.70-6.10) L 05/05/19 07:35 Hgb 8.0 g/dL (14.0-18.0) L 05/05/19 07:35 Hct 26.0 % (42.0-52.0) L 05/05/19 07:35 MCV 95.2 fL (80.0-94.0) H 05/05/19 07:35 MCH 29.3 pg (27.0-31.0) 05/05/19 07:35 MCHC 30.8 g/dL (32.0-36.0) L 05/05/19 07:35 RDW 21.8 % (12.0-15.0) H 05/05/19 07:35 Plt Count 270 10^3/uL (130-450) 05/05/19 07:35 MPV 11.0 fL (7.4-11.4) 05/05/19 07:35 Neut # (Auto) Not Reportable 05/05/19 07:35 Lymph # (Auto) Not Reportable 05/05/19 07:35 Clinch # (Auto) Not Reportable 05/05/19 07:35 Eos # (Auto) Not Reportable 05/05/19 07:35 Baso # (Auto) Not Reportable 05/05/19 07:35 Absolute Nucleated RBC Not Reportable 05/05/19 07:35 Total Counted 100 05/05/19 07:35 Band Neuts % (Manual) 6 % (0-10) 05/05/19 07:35 Reactive Lymphs % (Man) 13 % 05/05/19 07:35 Abnorm Lymph % (Manual) 0 % 05/05/19 07:35 Metamyelocytes % 2 % (-0) H 05/04/19 05:18 Myelocytes % 1 % (-0) H 05/04/19 05:18 Other Cells % 2 % 05/02/19 06:15 Nucleated RBC % Not Reportable 05/05/19 07:35 Neutrophils # (Manual) 12.4 10^3/uL (1.5-6.6) H 05/05/19 07:35 Lymphocytes # (Manual) 2.7 10^3/uL (1.5-3.5) 05/05/19 07:35 Monocytes # (Manual) 1.2 10^3/uL (0.0-1.0) H 05/05/19 07:35 Eosinophils # (Manual) 0.7 10^3/uL (0-0.7) 05/05/19 07:35 Basophils # (Manual) 0.0 10^3/uL (0-0.1) 05/05/19 07:35 Nucleated RBCs 11 % 05/05/19 07:35 Differential Comment MANUAL DIFFERENTIAL 05/05/19 07:35 Manual Slide Review Indicated 05/05/19 07:35 WBC Morphology NORMAL APPEARANCE (NORMAL) 05/04/19 05:18 Platelet Estimate NORMAL (130-450,000) (NORMAL) 05/04/19 05:18 Platelet Morphology NORMAL APPEARANCE (NORMAL) 05/04/19 05:18 RBC Morph Micro Appear 2+ ANISOCYTOSIS (NORMAL) 1+ POLYCHROMASIA (NORMAL) 05/03/19 06:35 RBC Morph Micro Appear 2+ ANISOCYTOSIS (NORMAL) 1+ POLYCHROMASIA (NORMAL) 05/04/19 05:18 RBC Morph Micro Appear 2+ ANISOCYTOSIS (NORMAL) 1+ POLYCHROMASIA (NORMAL) 05/04/19 05:18 RBC Morph Micro Appear 3+ ANISOCYTOSIS (NORMAL) 05/05/19 07:35 Sodium 141 mmol/L (135-145) 05/05/19 07:35 Potassium 3.5 mmol/L (3.5-5.0) 05/05/19 07:35 Chloride 116 mmol/L (101-111) H 05/05/19 07:35 Carbon Dioxide 17 mmol/L (21-32) L 05/05/19 07:35 Anion Gap 8.0 (6-13) 05/05/19 07:35 BUN 26 mg/dL (6-20) H 05/05/19 07:35 Creatinine 1.4 mg/dL (0.6-1.2) H 05/05/19 07:35 Estimated GFR (MDRD) 59 (>89) L 05/05/19 07:35 Glucose 86 mg/dL (70-100) 05/05/19 07:35 Glycated Hemoglobin 7.0 % (4.6-6.2) H 05/02/19 06:15 Estim Average Glucose 154 (70-100) H 05/02/19 06:15 Lactic Acid 2.3 mmol/L (0.5-2.2) H 05/04/19 05:18 Calcium 7.4 mg/dL (8.5-10.3) L 05/05/19 07:35 Iron 48 ug/dL (45-182) 05/03/19 06:35 TIBC 126 ug/dL (250-450) L 05/03/19 06:35 % Saturation 38 % (20-50) 05/03/19 06:35 Transferrin 90 mg/dL (180-329) L 05/03/19 06:35 Total Bilirubin 1.7 mg/dL (0.2-1.0) H 05/02/19 06:15 AST 59 IU/L (10-42) H 05/02/19 06:15 ALT 34 IU/L (10-60) 05/02/19 06:15 Alkaline Phosphatase 106 IU/L (42-121) 05/02/19 06:15 Total Protein 5.8 g/dL (6.7-8.2) L 05/02/19 06:15 Albumin 2.7 g/dL (3.2-5.5) L 05/02/19 06:15 Globulin 3.1 g/dL (2.1-4.2) 05/02/19 06:15 Albumin/Globulin Ratio 0.9 (1.0-2.2) L 05/02/19 06:15 Lipase 19 U/L (22-51) L 05/02/19 06:15 Vitamin B12 3896 pg/mL (180-914) H 05/03/19 06:35 Folate 28.00 ng/mL (5.90 - >24.8) 05/03/19 06:35 Urine Color DARK YELLOW 05/02/19 08:15 Urine Clarity CLEAR (CLEAR) 05/02/19 08:15 Urine pH 5.5 PH (5.0-7.5) 05/02/19 08:15 Ur Specific [place] 1.015 (1.002-1.030) 05/02/19 08:15 Urine Protein NEGATIVE mg/dL (NEGATIVE) 05/02/19 08:15 Urine Glucose (UA) NEGATIVE mg/dL (NEGATIVE) 05/02/19 08:15 Urine Ketones NEGATIVE mg/dL (NEGATIVE) 05/02/19 08:15 Urine Occult Blood NEGATIVE (NEGATIVE) 05/02/19 08:15 Urine Nitrite NEGATIVE (NEGATIVE) 05/02/19 08:15 Urine Bilirubin NEGATIVE (NEGATIVE) 05/02/19 08:15 Urine Urobilinogen 1 (NORMAL) E.U./dL (NORMAL) 05/02/19 08:15 Ur Leukocyte Esterase NEGATIVE (NEGATIVE) 05/02/19 08:15 Ur Microscopic Review NOT INDICATED 05/02/19 08:15 Urine Culture Comments NOT INDICATED 05/02/19 08:15 Last Dose Date 05/04/19 05/05/19 13:41 Last Dose Time 1525 05/05/19 13:41 Vancomycin Trough 14.2 ug/mL (10.0-20.0) 05/05/19 13:41 Influenza A (Rapid) Negative (Negative) 05/02/19 14:50 Influenza B (Rapid) Negative (Negative) 05/02/19 14:50 Slides for Path Review Indicated 05/03/19 06:35 Blood Type O POSITIVE 05/03/19 07:20 Blood Type Recheck O POSITIVE 05/03/19 06:35 Antibody Screen NEGATIVE 05/03/19 07:20 Crossmatch IS Only See Detail 05/03/19 07:20 - Procedures Procedures: Procedures EXCISION OF LARGE INTESTINE, ENDO, DIAGN (09/06/15) EXCISION OF TRANSVERSE COLON, ENDO (09/06/15) Sepsis Event Note (H) - Evaluation Current Stage of Sepsis: Sepsis Possible source of Sepsis: positive: Pulmonary - Sepsis Criteria Sepsis Criteria: Recorded Respiratory Rate greater than 20, WBC count greater t rosen 12,000 or less than 4000, CLINIQUE COUNTER MANAGER: altered consciousness (unrelated to primary neuro pathology), Metabolic: lactate > 2 mmol/L
[2019-05-05] MEDS ORDERED: SODIUM CHLORIDE 0.9% 1,000 ML IV SCH (18:31)
[2019-05-05] MEDS ORDERED: oxyCODONE 5 MG TABLET PO PRN (18:32)
[2019-05-05] MEDS: IPRATROPIUM/ALBUTEROL 3 ML NEB INH SCH (21:03)
[2019-05-06] MEDS: PIPERACILLIN/TAZOBACTAM 3.375 GM in SODIUM CHLORIDE 0.9% MINIBAG 100 ML IV SCH ×3 (00:01→13:02)
[2019-05-06] MEDS: SODIUM CHLORIDE FLUSH 0.9% 10 ML SYRINGE IVP SCH ×2 (00:01→09:48)
[2019-05-06] MEDS: hydrALAZINE 25 MG TABLET PO SCH ×2 (05:07→14:01)
[2019-05-06] MEDS: INSULIN ASPART 300 UNIT/3 ML PEN SUBQ SCH ×2 (08:20→12:03)
--- NOTE | 2019-05-06 08:54 | PHARMACY PROGRESS NOTE ---
- Therapy Status Vancomycin regimen day #: 5 Therapy status: Trough subtherapeutic (Trough 05/05 was very slightly subthera peutic; therefore, dose was increased from 1 g to 1250 mg daily to bring within therapeutic range.) Basis for treatment: Empirical Treatment indication: HCAP Trough goal: 15-20 Concurrent antibiotics: Zosyn - JILLIAN Risk Risk level for Acute Kidney Injury: High Acute Kidney Injury risk factors: Piperacillin/Tozobactam, Baseline CrCl <50, Wt >100kg or BMI >40, IV contrast within 72 hrs, Goal trough >15, Diabetes - Monitoring and Recommendation Clinical response to treatment: I&O Previous 24 hours 05/04/19 05/05/19 05/06/19 23:59 23:59 23:59 Intake Total 3150.000 4091.660 200 Output Total 290 100 150 Balance 2860.000 3991.660 50 Lab Results 05/05/19 05/04/19 05/03/19 07:35 05:18 06:35 BUN 26 H 24 H 22 H Creatinine 1.4 H 1.5 H 1.7 H Estimated GFR (MDRD) 59 L 54 L 47 L 05/02/19 06:15 BUN 20 Creatinine 1.7 H Estimated GFR (MDRD) 47 L Vancomycin Monitoring 05/05/19 13:41 Vancomycin Trough 14.2 Cultures 05/02/19 10:35 Blood Blood Culture - Preliminary NO GROWTH AFTER 2 DAYS 05/02/19 10:29 Blood - Left Arm Blood Culture - Preliminary NO GROWTH AFTER 2 DAYS Monitoring plan: Daily serum creatinine, Suggest ongoing fluid replacement Next trough due prior to maintenance dose #: 3 (New maintenance dose) Next trough due (date/time): 05/08 at 1230 Areas for additional monitoring: IV to PO when appropriate, Therapy de- escalation based on culture results, Acute Kidney Injury Pharmacy recommendation: Continue current regime
[2019-05-06] MEDS: IPRATROPIUM/ALBUTEROL 3 ML NEB INH SCH ×2 (09:03→13:13)
[2019-05-06] MEDS: ENOXAPARIN 40 MG/0.4 ML SYRINGE SUBQ SCH (09:45)
[2019-05-06] MEDS: FAMOTIDINE 20 MG TABLET PO SCH (09:45)
[2019-05-06] MEDS: SACCHAROMYCES BOULARDII 250 MG CAPSULE PO SCH (09:45)
[2019-05-06] MEDS: guaiFENesin 600 MG TABLET PO SCH (09:45)
[2019-05-06] MEDS: ASPIRIN EC 325 MG TABLET PO SCH (09:45)
[2019-05-06] MEDS: carvediloL 12.5 MG TABLET PO SCH (09:47)
[2019-05-06] MEDS: LOSARTAN 50 MG TABLET PO SCH (09:47)
--- NOTE | 2019-05-06 10:54 | Discharge Plan ---
Discharge Plan Problem Reviewed?: Yes Disposition: 02 Transfer Acute Care Hosp Condition: Poor Diet: Diabetic No Smoking: If you smoke, Please STOP! Call for help. Follow-up with: Jp Marquez MD [Primary Care Provider] -
--- NOTE | 2019-05-06 10:59 | DISCHARGE SUMMARY ---
Discharge Summary Admit Date: 05/02/19 Discharge Date: 05/06/19 Discharging Provider: Dr Janna Mcneal Primary Care Provider: Dr Jp Marquez Condition at Discharge: Poor Discharge Disposition: 02 Transfer Acute Care Hosp Discharge Facility Name: [facility] - DIAGNOSES Admission Diagnoses: (1) Sepsis (2) Metabolic encephalopathy (3) HCAP (healthcare-associated pneumonia) (4) JILLIAN (acute kidney injury) (5) Diabetes mellitus (6) Anemia (7) Hypertension (8) Asthma (9) Low back pain (10) Pancreatic cancer Discharge Diagnoses with Status of Each Condition: See below - HPI History of Present Illness: From the admission H&P of Dr Alton Robles: Patient is a 84-year-old -[place] gentleman with a past medical history significant for hypertension, asthma, obstructive sleep apnea, type 2 diabetes mellitus, chronic low back pain, osteoarthritis, hyperlipidemia and pancreatic cancer diagnosed in December of this year currently undergoing chemotherapy who presented to the emergency department secondary to fever and confusion. The patient is a poor historian as he is confused when I interview him. The patient expresses to me that his brought him in to the hospital after they had a long conversation about his finances. It is not really clear from his history as to why he presented to the hospital. I spoke with the patient's and she states that the patient received chemotherapy just over 1 week ago and then she began to notice that he was having increasing confusion and hallucinations. She states 3 days ago he spiked a fever up to 101 and was very confused at that time. She states that she called his oncologist who prescribed him Levaquin which he has been taking for the last 3 days. She states that despite being on this medication he has been having continued confusion and today was very paranoid and she became scared so she called EMS. She states that she has been monitoring his fevers and he has not had any fevers as high as 101 since 3 days ago. The patient is coughing when I interview him and he does admit to a nonproductive cough. He denies any chest pain or shortness of breath. In the emergency department the patient did complain of abdominal pain and back pain. When I asked him about his back pain he states that he has had this pain for years. The patient denies any shortness of breath. On presentation to the emergency department the patient was afebrile and sli ghtly hypertensive. Patient was not hypoxic and initially did not appear to be in any respiratory distress. The patient's lab work was remarkable for a white blood cell count of 22.9, hemoglobin of 8, creatinine of 1.7 which was elevated from his baseline and a lactic acid of 4.0 along with a bilirubin of 1.7 and AST of 59. The patient's urine analysis was negative. Given the patient's complai nt of abdominal pain the emergency room physician did order a CT of his abdomen and pelvis which revealed pancreatic head mass, consistent with known pancreatic cancer, distal pancreatic atrophy and pancreatic duct dilation which appeared unchanged from 08/2018. There was also finding of increasing opacity of the lower lung since prior examination consistent with atelectasis or pneumonia. There was also a very small left pleural effusion. The patient had cholelithiasis with no cysts or signs of cholecystitis or bile duct dilation. Patient did have finding of chronic pancreatic and renal cysts. The patient did then undergo a chest x-ray which showed a moderate left hemidiaphragm elevation and mild left basilar airspace opacity which may reflect atelectasis or pneumonitis. The patient otherwise denies any headache, blurred vision, runny nose, sore throat, nasal congestion, chest pain, shortness of breath, nausea, vomiting, diarrhea, constipation, urinary urgency, urinary frequency, dysuria, neck stiffness, recent unintentional weight loss, night sweats, or any focal neurologic deficits. On arrival to the medical [facility] the patient was confused and tachypneic with respiratory rate of 27. Given the patient's leukocytosis, elevated lactic acid, confusion, acute kidney injury and tachypnea in the setting of pneumonia the patient was admitted with sepsis due to pneumonia. The patient was given IV vancomycin and Zosyn in the emergency department. - HOSPITAL COURSE Hospital Course: 1) Sepsis The lactic acid level of 4.0 decreased to 2.8 by the following day. He was started on IV fluids, IV antibiotics with pneumonia as the source of infection. The WBC of 20K decrease very slowly to 17K and on his last day here, increased again to 20K. 2) Healthcare Acquired pneumonia He was started on empiric Zosyn and Vanco with Florastor. He had a cough but did not expectorate. Mucinex was used for pulmonary toilet. He needed supplemental o xygen. This was attempted to be tapered to off. He started to walk with physical therapy and they noticed that his oximetries were dropping. Because of the worsening desaturations with activity, a chest x-ray was ordered. The chest x-ray showed worsening of pneumonia which was now bilateral. His prn inhalers were changed to scheduled nebulizer treatments. The patient had worsening confusion once again and increasing oxygen settings. He was therefore requested to be transferred for bronchoscopy and was accepted by the [facility] Hospitalist service at [facility] and was transferred there by ambulance. 3) Respiratory failure with hypoxia As above in #2 4) Metabolic encephalopathy The patient was speaking gibberish and was lethargic at admission. After several days, he was able to sit up, feed himself, use a bedside commode and started to answer appropriately but is either hard of hearing or was still somewhat confused, as he was answering questions that are unrelated. Ambien was used once, over-sedated him, and was stopped. In his last 2 days of hospitalization, the confusion got worse and was similar to presentation. For this reason also, he was transferred to a higher level of care facility. 5) Pancratic cancer This was diagnosed in Dec of this year. Chemotherapy is still planned 6) DM His A1c was 7.0. Metformin was stopped as it was probably adding to the high la ctic acid level. He was managed on a CC diet and SS Insulin. 7) HTN Stable on current medications 8) Acute on chronic kidney failure Metformin was stopped, iv hydration was started. The creat improved slowly daily with this management 9) Anemia This appeared to be stable, after he needed 1 unit of blood transfused when Hgb droppe to 6.9. It also may be related to his chemotherapy and anemia of chronic disease. 10) Asthma His inhalers were changed to nebs to improve ventilation and help with mobilizing secretions. 11) Chronic low back pain Heat packs and PRN pain meds were used, keeping narcotics to a minimum because of his confusion 12) Opiate dependance As he became lucid, his main complaint was low back pain for which he often requested his narcotics. 13) Hyperlipidemia Was kept on his same management while here. 14) Hx sleep apnea His home device was used to be here if he had it 15) Osteoarthritis This was reported to be the cause of the low back pain. - ALLERGIES Allergies/Adverse Reactions: Allergies Allergy/AdvReac Type Severity Reaction Status Date / Time ibuprofen [From Motrin] Allergy Unknown Verified 09/06/15 11:45 - MEDICATIONS Home Medications: Ambulatory Orders Medication Instructions Recorded Confirmed Albuterol Sulfate [Proair 2 puffs INH Q4H PRN 05/02/19 05/02/19 Respiclick] Aspirin EC [Ecotrin] 325 mg PO DAILY 05/02/19 05/02/19 Carvedilol [Coreg] 25 mg PO BID 05/02/19 05/02/19 Cyclobenzaprine [Flexeril] 10 mg PO TID PRN 05/02/19 05/02/19 Docusate Sodium [Dss] 250 mg PO DAILY 05/02/19 05/02/19 Fluticasone 110 Mcg [Flovent] 2 puffs INH BID PRN 05/02/19 05/02/19 Fluticasone [Flonase] 1 sprays FAHEEM DAILY PRN 05/02/19 05/02/19 Hydralazine HCl 50 mg PO TID 05/02/19 05/02/19 Metformin HCl [Metformin HCl ER] 500 mg PO DAILY 05/02/19 05/02/19 Senna [Senokot] 8.6 mg PO DAILY PRN 05/02/19 05/02/19 Telmisartan [Micardis] 80 mg PO DAILY 05/02/19 05/02/19 oxyCODONE ER [OxyCONTIN] 10 mg PO Q12H 05/02/19 05/02/19 oxyCODONE [Roxicodone] 10 mg PO TID PRN 05/02/19 05/02/19 - PHYSICAL EXAM AT DISCHARGE General Appearance: positive: Mild distress (He was shivering, Lethargic, speaking gibberish, mostly sleeping) Eyes Bilateral: positive: Normal inspection ENT: positive: Dry mucous membranes Neck: positive: Nml inspection, No JVD Respiratory: positive: Other (Scattered rhonchi, Mostly in lower lung peters.) Cardiovascular: positive: Regular rate & rhythm, No murmur Abdomen: positive: Non-tender, No distention Skin: positive: Color nml Extremities: positive: No pedal edema Neurologic/Psychiatric: positive: Disoriented to person, Disoriented to place, Disoriented to time, Other (Lethargic, speaking gibberish) - LABS Result Diagrams: 12/24/19 10:58 05/06/19 10:58 - DIAGNOSTIC IMAGING Diagnostic Imaging Results: Final report reviewed - SEPSIS Current Stage of Sepsis: Sepsis Possible source of Sepsis: Pulmonary Sepsis Criteria: Recorded Respiratory Rate greater than 20, WBC count greater than 12,000 or less than 4000, ENTRY CLERK: altered consciousness (unrelated to primary neuro pathology), Metabolic: lactate > 2 mmol/L - FOLLOW UP Follow Up: This will be determined after his hospitalization at [facility]. - TIME SPENT Time Spent in Discharge (Minutes): 60
[2019-05-06 11:14] LABS: BASOPHILS # (AUTO) 0.1 10^3/uL (0.0-0.1); BASOPHILS % (AUTO) 0.5 %; EOSINOPHILS # (AUTO) 1.1 10^3/uL (0.0-0.7); EOSINOPHILS % (AUTO) 5.2 %; HGB - HEMOGLOBIN 8.4 g/dL (14.0-18.0); LYMPHOCYTES # (AUTO) 5.4 10^3/uL (1.5-3.5); LYMPHOCYTES % (AUTO) 26.8 %; MEAN CORPUSCULAR HEMOGLOBIN 29.1 pg (27.0-31.0); MEAN CORPUSCULAR HGB CONC 30.9 g/dL (32.0-36.0); MEAN CORPUSCULAR VOLUME 94.1 fL (80.0-94.0); MEAN PLATELET VOLUME 10.8 fL (7.4-11.4); MONOCYTES # (AUTO) 2.4 10^3/uL (0.0-1.0); MONOCYTES % (AUTO) 12.1 %; NEUTROPHILS # (AUTO) 9.4 10^3/uL (1.5-6.6); PLT - PLATELET COUNT 302 10^3/uL (130-450); RED BLOOD COUNT 2.89 10^6/uL (4.70-6.10); RED CELL DISTRIBUTION WIDTH 22.7 % (12.0-15.0)
[2019-05-06 11:19] LABS: INR 1.6 (0.8-1.2); PT - PROTHROMBIN TIME 17.7 secs (9.9-12.6)
[2019-05-06 11:35] LABS: ALBUMIN 2.2 g/dL (3.2-5.5); ALBUMIN/GLOBULIN RATIO 0.6 (1.0-2.2); BILIRUBIN,TOTAL 1.6 mg/dL (0.2-1.0); CALCIUM 8.7 mg/dL (8.5-10.3); CREATININE 1.6 mg/dL (0.6-1.2); TOTAL PROTEIN 5.7 g/dL (6.7-8.2)
[2019-05-06 12:04] LABS: DIFFERENTIAL COMMENT MANUAL=AUTO DIFF; PLATELET ESTIMATE, MANUAL NORMAL (130-450,000) (NORMAL); PLATELET MORPHOLOGY NORMAL APPEARANCE (NORMAL)
[2019-05-06] MEDS ORDERED: VANCOMYCIN INJ 1.25 GM in SODIUM CHLORIDE 0.9% 250 ML IV SCH (13:00)
[2019-05-06] MEDS: ACETAMINOPHEN 325 MG TABLET PO PRN (13:59)
[2019-05-06 14:23] VITALS: BP 118/65
[2019-05-06] MEDS ORDERED: PIPERACILLIN/TAZOBACTAM 3.375 GM in SODIUM CHLORIDE 0.9% MINIBAG 100 ML IV SCH (21:00)
== END 2019-05-06 14:54 | disposition short-term general hospital (02) | DRG 871 ==
LOC: EDUNIT# → ED 05:52 → MS2 10:07
PROVIDERS: ADMIT Internal Medicine; ATTEND Internal Medicine
PROC: 30233N1 Transfusion of Nonautologous Red Blood Cells into Peripheral Vein, Percutaneous Approach (ICD-10-PCS; principal; 2019-05-03)
DX: A41.9 Sepsis, unspecified organism (principal); G93.41 Metabolic encephalopathy; J18.9 Pneumonia, unspecified organism; R79.89 Other specified abnormal findings of blood chemistry; M54.5 Low back pain; J96.91 Respiratory failure, unspecified with hypoxia; N17.9 Acute kidney failure, unspecified; I10 Essential (primary) hypertension; E11.9 Type 2 diabetes mellitus without complications; C25.0 Malignant neoplasm of head of pancreas; F11.20 Opioid dependence, uncomplicated; Y95 Nosocomial condition; G47.33 Obstructive sleep apnea (adult) (pediatric); G89.29 Other chronic pain; E78.5 Hyperlipidemia, unspecified; R10.9 Unspecified abdominal pain; K86.89 Other specified diseases of pancreas; K80.20 Calculus of gallbladder without cholecystitis without obstruction; E11.22 Type 2 diabetes mellitus with diabetic chronic kidney disease; I12.9 Hypertensive chronic kidney disease with stage 1 through stage 4 chronic kidney disease, or unspecified chronic kidney disease; N18.9 Chronic kidney disease, unspecified; D64.81 Anemia due to antineoplastic chemotherapy; T45.1X5A Adverse effect of antineoplastic and immunosuppressive drugs, initial encounter; Y92.009 Unspecified place in unspecified non-institutional (private) residence as the place of occurrence of the external cause; D63.8 Anemia in other chronic diseases classified elsewhere; R53.83 Other fatigue; T42.6X5A Adverse effect of other antiepileptic and sedative-hypnotic drugs, initial encounter; Y92.230 Patient room in hospital as the place of occurrence of the external cause; M47.816 Spondylosis without myelopathy or radiculopathy, lumbar region; R65.20 Severe sepsis without septic shock; J45.20 Mild intermittent asthma, uncomplicated; H91.90 Unspecified hearing loss, unspecified ear; Z95.828 Presence of other vascular implants and grafts; Z79.82 Long term (current) use of aspirin; Z79.51 Long term (current) use of inhaled steroids; Z79.899 Other long term (current) drug therapy; Z79.84 Long term (current) use of oral hypoglycemic drugs; Z87.891 Personal history of nicotine dependence
CPT/HCPCS: 36415; 71045; 74177; 80048; 80053; 80202; 81003; 82607; 82746; 83036; 83540; 83605; 83690; 84466; 85025; 85610; 86850; 86900; 86901; 86920; 87040; 87275; 87276; 94640; 96361; 96374; 97116; 97162; 99284; 99285; A9270; J1650; J3370; J7120; J7626; P9016; Q9967; 81001; 82272; 82565; 87086

== ENCOUNTER 2019-05-22 07:00 | Outpatient (CLI) | payer MEDICARE, OTHER ==
[2019-05-22 18:43] LABS: BASOPHILS % (AUTO) 0.1 %; EOSINOPHILS % (AUTO) 0.3 %; HGB - HEMOGLOBIN 9.2 g/dL (14.0-18.0); LYMPHOCYTES # (AUTO) 2.4 10^3/uL (1.5-3.5); MEAN CORPUSCULAR HEMOGLOBIN 31.3 pg (27.0-31.0); MEAN CORPUSCULAR HGB CONC 29.3 g/dL (32.0-36.0); MEAN CORPUSCULAR VOLUME 106.8 fL (80.0-94.0); MEAN PLATELET VOLUME 11.6 fL (7.4-11.4); MONOCYTES # (AUTO) 1.1 10^3/uL (0.0-1.0); MONOCYTES % (AUTO) 7.3 %; NEUTROPHILS # (AUTO) 10.5 10^3/uL (1.5-6.6); NEUTROPHILS % (AUTO) 73.6 %; PLT - PLATELET COUNT 262 10^3/uL (130-450); RED BLOOD COUNT 2.94 10^6/uL (4.70-6.10); RED CELL DISTRIBUTION WIDTH 24.4 % (12.0-15.0); WHITE BLOOD COUNT 14.3 x10^3/uL (4.8-10.8)
[2019-05-22 19:00] LABS: ALBUMIN 2.3 g/dL (3.2-5.5); ALBUMIN/GLOBULIN RATIO 0.6 (1.0-2.2); BILIRUBIN,TOTAL 0.9 mg/dL (0.2-1.0); CALCIUM 8.6 mg/dL (8.5-10.3); CREATININE 1.3 mg/dL (0.6-1.2)
[2019-05-22 19:26] LABS: PLATELET ESTIMATE, MANUAL NORMAL (130-450,000) (NORMAL); PLATELET MORPHOLOGY NORMAL APPEARANCE (NORMAL)
== END 2019-05-22 23:59 | disposition home or self-care (01) ==
LOC: LAB.WCP 07:00
PROVIDERS: ATTEND Family Medicine
DX: C25.0 Malignant neoplasm of head of pancreas (principal); I10 Essential (primary) hypertension
CPT/HCPCS: 36415; 80048; 80053; 82378; 85025

== ENCOUNTER 2019-06-02 08:00 | Outpatient (CLI) | payer MEDICARE, OTHER ==
[2019-06-02 18:30] LABS: BASOPHILS % (AUTO) 0.2 %; EOSINOPHILS % (AUTO) 1.9 %; HGB - HEMOGLOBIN 10.2 g/dL (14.0-18.0); LYMPHOCYTES % (AUTO) 22.6 %; MEAN CORPUSCULAR HGB CONC 30.1 g/dL (32.0-36.0); MONOCYTES % (AUTO) 11.8 %; NEUTROPHILS % (AUTO) 62.4 %; PLT - PLATELET COUNT 186 10^3/uL (130-450); RED BLOOD COUNT 3.29 10^6/uL (4.70-6.10); RED CELL DISTRIBUTION WIDTH 19.3 % (12.0-15.0); WHITE BLOOD COUNT 14.4 x10^3/uL (4.8-10.8)
[2019-06-02 18:36] LABS: ABNORMAL LYMPHS % (MANUAL) 0 %; BAND NEUTROPHILS % (MANUAL) 0 %
[2019-06-02 18:53] LABS: ALBUMIN/GLOBULIN RATIO 0.8 (1.0-2.2); BILIRUBIN,TOTAL 2.4 mg/dL (0.2-1.0); CALCIUM 8.5 mg/dL (8.5-10.3); CREATININE 1.2 mg/dL (0.6-1.2); TOTAL PROTEIN 6.8 g/dL (6.7-8.2)
[2019-06-02 19:03] LABS: LYMPHOCYTES # (MANUAL) 2.9 10^3/uL (1.5-3.5); LYMPHOCYTES % (MANUAL) 20 %; MONOCYTES # (MANUAL) 1.4 10^3/uL (0.0-1.0)
[2019-06-02 19:04] LABS: DIFFERENTIAL COMMENT MANUAL DIFFERENTIAL; PLATELET ESTIMATE, MANUAL NORMAL (130-450,000) (NORMAL); PLATELET MORPHOLOGY NORMAL APPEARANCE (NORMAL)
== END 2019-06-02 23:59 | disposition home or self-care (01) ==
LOC: LAB.WCP 08:00
PROVIDERS: ATTEND Internal Medicine Hematology & Oncology
DX: C25.0 Malignant neoplasm of head of pancreas (principal); K86.81 Exocrine pancreatic insufficiency
CPT/HCPCS: 36415; 80053; 85025

== ENCOUNTER 2019-06-10 08:00 | Outpatient (CLI) | payer MEDICARE, OTHER ==
[2019-06-10 18:57] LABS: BASOPHILS % (AUTO) 0.2 %; EOSINOPHILS # (AUTO) 0.4 10^3/uL (0.0-0.7); EOSINOPHILS % (AUTO) 3.9 %; LYMPHOCYTES # (AUTO) 2.4 10^3/uL (1.5-3.5); LYMPHOCYTES % (AUTO) 25.2 %; MEAN CORPUSCULAR HEMOGLOBIN 31.6 pg (27.0-31.0); MEAN CORPUSCULAR HGB CONC 30.9 g/dL (32.0-36.0); MEAN CORPUSCULAR VOLUME 102.5 fL (80.0-94.0); MEAN PLATELET VOLUME 11.1 fL (7.4-11.4); MONOCYTES # (AUTO) 0.9 10^3/uL (0.0-1.0); MONOCYTES % (AUTO) 9.4 %; NEUTROPHILS # (AUTO) 5.7 10^3/uL (1.5-6.6); NEUTROPHILS % (AUTO) 60.5 %; PLT - PLATELET COUNT 171 10^3/uL (130-450); RED BLOOD COUNT 3.16 10^6/uL (4.70-6.10); RED CELL DISTRIBUTION WIDTH 17.2 % (12.0-15.0); WHITE BLOOD COUNT 9.3 x10^3/uL (4.8-10.8)
[2019-06-10 19:19] LABS: ALBUMIN 2.9 g/dL (3.2-5.5); ALBUMIN/GLOBULIN RATIO 0.8 (1.0-2.2); BILIRUBIN,TOTAL 5.3 mg/dL (0.2-1.0); CALCIUM 7.9 mg/dL (8.5-10.3); TOTAL PROTEIN 6.4 g/dL (6.7-8.2)
== END 2019-06-10 23:59 | disposition home or self-care (01) ==
LOC: LAB.WCP 08:00
PROVIDERS: ATTEND Internal Medicine Hematology & Oncology
DX: C25.0 Malignant neoplasm of head of pancreas (principal); K86.81 Exocrine pancreatic insufficiency
CPT/HCPCS: 36415; 80053; 82378; 85025; 86301

== ENCOUNTER 2019-06-24 18:28 | Outpatient (CLI) | payer MEDICARE, OTHER | END 2019-06-24 18:29 | disposition critical access hospital (66) | LOC: EMS 18:28 | PROVIDERS: ATTEND Surgery | DX: R06.02 Shortness of breath (principal); M54.9 Dorsalgia, unspecified | CPT/HCPCS: A0425; A0427 ==

== ENCOUNTER 2019-06-24 18:50 | Emergency (ER) | payer MEDICARE, OTHER ==
--- NOTE | 2019-06-24 19:09 | ED Physician Documentation ---
PD HPI DYSPNEA - Stated complaint Stated Complaint: SOA - Chief complaint Chief Complaint: Cardiac - History obtained from History obtained from: Patient, Family - History of Present Illness Timing - onset: Chronic Timing - details: Gradual onset, Constant, Waxing and waning Pain level now: 8 Improved by: Rest Worsened by: Exertion Associated symptoms: Chest pain / discomfort. No: Fever Recently seen: Admitted - Additional information Additional information: BIBA c/o epigastric and right flank/right chest pain. he has had this pain chronically, diagnosed with pancreatic CA. he was admitted to 3 days ago, discharged the following day after being diagnosed with PE and started on Lovenox. he was en route to ED per his request but EMS diverted to [facility] due to hypotension which resolved with IV fluids Review of Systems Constitutional: reports: Reviewed and negative Cardiac: reports: Chest pain / pressure (right chest), Pedal edema. denies: Palpitations Respiratory: reports: Reviewed and negative GI: reports: Abdominal Pain. denies: Nausea : denies: Dysuria, Frequency Skin: reports: Reviewed and negative Musculoskeletal: reports: Reviewed and negative Neurologic: reports: Reviewed and negative PD PAST MEDICAL HISTORY - Past Medical History Cardiovascular: Hypertension, Murmur, Arrhythmia Respiratory: Asthma, Sleep apnea Neuro: None Endocrine/Autoimmune: Type 2 diabetes GI: None : None HEENT: None Psych: None Musculoskeletal: Osteoarthritis, Chronic back pain Derm: None - Past Surgical History Past Surgical History: Yes General: Colonoscopy Derm: Skin cancer surgery - Present Medications Home Medications: Ambulatory Orders Medication Instructions Recorded Confirmed Albuterol Sulfate [Proair 2 puffs INH Q4H PRN 05/02/19 05/02/19 Respiclick] Aspirin EC [Ecotrin] 325 mg PO DAILY 05/02/19 05/02/19 Carvedilol [Coreg] 25 mg PO BID 05/02/19 05/02/19 Cyclobenzaprine [Flexeril] 10 mg PO TID PRN 05/02/19 05/02/19 Docusate Sodium [Dss] 250 mg PO DAILY 05/02/19 05/02/19 Fluticasone 110 Mcg [Flovent] 2 puffs INH BID PRN 05/02/19 05/02/19 Fluticasone [Flonase] 1 sprays FAHEEM DAILY PRN 05/02/19 05/02/19 Hydralazine HCl 50 mg PO TID 05/02/19 05/02/19 Metformin HCl [Metformin HCl ER] 500 mg PO DAILY 05/02/19 05/02/19 Senna [Senokot] 8.6 mg PO DAILY PRN 05/02/19 05/02/19 Telmisartan [Micardis] 80 mg PO DAILY 05/02/19 05/02/19 oxyCODONE ER [OxyCONTIN] 10 mg PO Q12H 05/02/19 05/02/19 oxyCODONE [Roxicodone] 10 mg PO TID PRN 05/02/19 05/02/19 HYDROmorphone [Dilaudid] 2 mg PO Q4H PRN #20 tablet 06/24/19 - Allergies Allergies/Adverse Reactions: Allergies Allergy/AdvReac Type Severity Reaction Status Date / Time ibuprofen [From Motrin] Allergy Unknown Verified 06/24/19 19:05 - Social History Does the pt smoke?: No Smoking Status: Never smoker Does the pt drink ETOH?: Yes Does the pt have substance abuse?: No - Immunizations Immunizations are current?: Yes - POLST Patient has POLST: No POLST Status: Full Code PD ED PE NORMAL - Vitals Vital signs reviewed: Yes - General General: Alert and oriented X 3, No acute distress, Well developed/nourished - Neck Neck: Supple, no meningeal sign - Cardiac Cardiac: RRR - Respiratory Respiratory: No respiratory distress, Clear bilaterally - Abdomen Abdomen: Soft, Non distended - Derm Derm: Normal color, Warm and dry - Neuro Neuro: Alert and oriented X 3 PD ED PE EXPANDED - Cardiac Cardiac: Murmur Present - Abdomen Abdomen: Tender to palpation (epigastrium without rebound or guarding) Results - Vitals Vitals: Oxygen O2 Source [With Activity] Nasal cannula O2 Source Nasal cannula Oxygen Flow Rate 2 - EKG (time done) No standard instances Rate: Rate (enter#) (66) Rhythm: NSR [place]: RAD Intervals: RBBB, Other (RPFB) QRS: Normal Ischemia: Normal ST segments - Labs Labs: Laboratory Tests 06/24/19 06/24/19 06/24/19 19:00 19:00 19:00 WBC 11.5 H RBC 3.01 L Hgb 9.5 L Hct 27.4 L MCV 91.0 MCH 31.6 H MCHC 34.7 RDW 17.0 H Plt Count 279 MPV 11.0 Neut # (Auto) 8.8 H Lymph # (Auto) 1.4 L Dickinson # (Auto) 1.1 H Eos # (Auto) 0.1 Baso # (Auto) 0.0 Absolute Nucleated RBC 0.00 Nucleated RBC % 0.0 PT 24.2 H INR 2.2 H APTT 40.9 H Sodium 139 Potassium 3.1 L Chloride 100 L Carbon Dioxide 26 Anion Gap 13.0 BUN 25 H Creatinine 1.3 H Estimated GFR (MDRD) 64 L Glucose 89 Lactic Acid Calcium 8.2 L Total Bilirubin 13.9 H AST 310 H ALT 155 H Alkaline Phosphatase 723 H Total Protein 6.0 L Albumin 2.2 L Globulin 3.8 Albumin/Globulin Ratio 0.6 L Lipase 40 Urine Color Urine Clarity Urine pH Ur Specific [place] Urine Protein Urine Glucose (UA) Urine Ketones Urine Occult Blood Urine Nitrite Urine Bilirubin Urine Urobilinogen Ur Leukocyte Esterase Ur Microscopic Review Urine Culture Comments 06/24/19 06/24/19 19:44 20:05 WBC RBC Hgb Hct MCV MCH MCHC RDW Plt Count MPV Neut # (Auto) Lymph # (Auto) Dickinson # (Auto) Eos # (Auto) Baso # (Auto) Absolute Nucleated RBC Nucleated RBC % PT INR APTT Sodium Potassium Chloride Carbon Dioxide Anion Gap BUN Creatinine Estimated GFR (MDRD) Glucose Lactic Acid 1.1 Calcium Total Bilirubin AST ALT Alkaline Phosphatase Total Protein Albumin Globulin Albumin/Globulin Ratio Lipase Urine Color DARK YELLOW Urine Clarity CLEAR Urine pH 7.0 Ur Specific [place] 1.010 Urine Protein NEGATIVE Urine Glucose (UA) NEGATIVE Urine Ketones NEGATIVE Urine Occult Blood NEGATIVE Urine Nitrite NEGATIVE Urine Bilirubin MODERATE H Urine Urobilinogen 0.2 (NORMAL) Ur Leukocyte Esterase NEGATIVE Ur Microscopic Review NOT INDICATED Urine Culture Comments NOT INDICATED - Rads (name of study) chest xray Radiology: Prelim report reviewed, See rad report PD MEDICAL DECISION MAKING - ED course Complexity details: reviewed results, re-evaluated patient, considered differential, d/w patient ED course: brief period of hypotension early in ED stay which resolved with IV fluids. with ongoing IV fluids, his pressure continued to increase such that opiate medication could be given. he reported excellent pain relief with IV morphine. test results reviewed; abnormalities are comparable to previous (using records), although there is a general trend up in his LFTs. he is comfortable with d/c home Departure - Departure Disposition: 01 Home, Self Care Clinical Impression: Pancreatic cancer Qualifiers: Pancreatic malignancy location: unspecified Qualified Code(s): C25.9 - Malignant neoplasm of pancreas, unspecified Chest pain Qualifiers: Chest pain type: pleurodynia Qualified Code(s): R07.81 - Pleurodynia Condition: Stable Instructions: ED Chest Pain Pleurisy Follow-Up: Jp Marquez MD [Primary Care Provider] - Prescriptions: HYDROmorphone [Dilaudid] 2 mg PO Q4H PRN #20 tablet PRN Reason: Pain Discharge Date/Time: 06/24/19 22:05
[2019-06-24] MEDS ORDERED: SODIUM CHLORIDE 0.9% 1,000 ML IV STA (19:29)
[2019-06-24 19:40] LABS: BASOPHILS % (AUTO) 0.2 %; EOSINOPHILS # (AUTO) 0.1 10^3/uL (0.0-0.7); EOSINOPHILS % (AUTO) 0.5 %; HGB - HEMOGLOBIN 9.5 g/dL (14.0-18.0); LYMPHOCYTES # (AUTO) 1.4 10^3/uL (1.5-3.5); LYMPHOCYTES % (AUTO) 12.4 %; MEAN CORPUSCULAR HEMOGLOBIN 31.6 pg (27.0-31.0); MEAN CORPUSCULAR HGB CONC 34.7 g/dL (32.0-36.0); MONOCYTES # (AUTO) 1.1 10^3/uL (0.0-1.0); MONOCYTES % (AUTO) 9.3 %; NEUTROPHILS # (AUTO) 8.8 10^3/uL (1.5-6.6); NEUTROPHILS % (AUTO) 76.5 %; PLT - PLATELET COUNT 279 10^3/uL (130-450); RED BLOOD COUNT 3.01 10^6/uL (4.70-6.10); WHITE BLOOD COUNT 11.5 x10^3/uL (4.8-10.8)
[2019-06-24 19:47] LABS: INR 2.2 (0.8-1.2); PT - PROTHROMBIN TIME 24.2 secs (9.9-12.6)
[2019-06-24 19:54] LABS: PARTIAL THROMBOPLASTIN TIME 40.9 secs (24.9-33.3)
[2019-06-24 20:00] LABS: ALBUMIN 2.2 g/dL (3.2-5.5); ALBUMIN/GLOBULIN RATIO 0.6 (1.0-2.2); BILIRUBIN,TOTAL 13.9 mg/dL (0.2-1.0); CALCIUM 8.2 mg/dL (8.5-10.3); CREATININE 1.3 mg/dL (0.6-1.2)
--- NOTE | 2019-06-24 20:05 | XRAY Report ---
Reason: chest pain Procedure Date: 06/24/2019 Accession Number: [id number] / [id number] Procedure: XR - Chest 1 View X-Ray CPT Code: 50454 Final Report FULL RESULT: EXAM: CHEST RADIOGRAPHY EXAM DATE: 06/24/2019 07:53 PM. CLINICAL HISTORY: Chest pain. COMPARISON: XR CHEST AP PORTABLE 05/12/2019 12:40 PM. TECHNIQUE: 1 view. FINDINGS: Lungs/Pleura: There is moderate elevation of the left hemidiaphragm. Interval resolution of perihilar interstitial opacities. No acute consolidative pneumonia. Negative for pneumothorax. Mediastinum: The heart size is normal. The trachea is midline. Other: Right-sided Port-A-Cath tip overlies a SVC. IMPRESSION: 1. Interval clearing of perihilar airspace disease. 2. Moderately elevated left diaphragm unchanged. RADIA
[2019-06-24 20:15] LABS: GLUCOSE, URINE (UA) NEGATIVE (NEGATIVE); KETONES,URINE (UA) NEGATIVE (NEGATIVE); LEUKOCYTE ESTERASE, URINE NEGATIVE (NEGATIVE); NITRITE,URINE NEGATIVE (NEGATIVE); OCCULT BLOOD,URINE NEGATIVE (NEGATIVE); PROTEIN,URINE NEGATIVE (NEGATIVE); UROBILINOGEN,URINE 0.2 (NORMAL) E.U./dL (NORMAL)
[2019-06-24 20:16] LABS: BILIRUBIN,URINE MODERATE (NEGATIVE); CLARITY,URINE CLEAR (CLEAR); ICTOTEST,URINE POSITIVE
[2019-06-24] MEDS ORDERED: MORPHINE 2 MG/ML CARPUJECT IVP STA (20:27)
[2019-06-24 22:06] VITALS: BP 104/60
== END 2019-06-24 22:05 | disposition home or self-care (01) ==
LOC: EDUNIT# → ED 18:50
DX: C25.9 Malignant neoplasm of pancreas, unspecified (principal); R07.81 Pleurodynia; I95.9 Hypotension, unspecified; I45.2 Bifascicular block; Z86.711 Personal history of pulmonary embolism; Z79.01 Long term (current) use of anticoagulants; Z79.82 Long term (current) use of aspirin; I10 Essential (primary) hypertension; E11.9 Type 2 diabetes mellitus without complications; Z79.84 Long term (current) use of oral hypoglycemic drugs
CPT/HCPCS: 36415; 71045; 80053; 81001; 81003; 83605; 83690; 85025; 85610; 85730; 87086; 93005; 96361; 96374; 99284

== ENCOUNTER 2019-06-26 10:21 | Outpatient (CLI) | payer MEDICARE, OTHER | END 2019-06-26 10:22 | disposition E | LOC: EMS 10:21 | PROVIDERS: ATTEND Surgery | DX: I46.9 Cardiac arrest, cause unspecified (principal) | CPT/HCPCS: A0425; A0429 ==